=== PATIENT | female | born 1955 | race Caucasian/White ===

== ENCOUNTER 2020-06-09 14:01 | Emergency (ER) | payer MEDICARE, OTHER, SELFPAY ==
[2020-06-09 14:19] VITALS: BP 116/79; PULSE 113; RESP 18; TEMP 36.4; O2SAT 90; BMI 36.9
[2020-06-09 14:45] LABS: Basophils # 0.1 10^3/uL (0.0-0.1); Basophils % 0.7 %; Eosinophils # 0.3 10^3/uL (0.0-0.8); Eosinophils % 3.4 %; Lymphocytes % 20.3 %; Mean Corpuscular HGB Conc 31.3 g/dL (30.0-36.0); Mean Corpuscular Hemoglobin 29.1 pg (28.0-34.0); Mean Platelet Volume 11.1 fL (7.4-10.4); Monocytes # 1.1 10^3/uL (0.2-0.9); Monocytes % 11.3 %; Neutrophils # 6.43 10^3/uL (1.8-7.7); Nucleated Red Blood Cells % 0 %; Platelet Count 234 10^3/cmm (130-400); Red Blood Count 5.16 10^6/uL (4.1-5.3); Red Cell Distribution Width 13.1 % (12.1-15.1)
[2020-06-09 15:05] LABS: Alanine Aminotransferase 20 U/L (0-33); Albumin Level 4.2 g/dL (3.5-5.2); Alkaline Phosphatase 76 IU/L (35-105); Anion Gap 12.3 (5-19); Aspartate Amino Transferase 17 U/L (0-32); Blood Urea Nitrogen 11 mg/dL (8-23); Calcium 9.1 mg/dL (8.5-10.5); Carbon Dioxide 31 mmol/L (22-29); Chloride 102 mmol/L (98-107); Globulin 2.4 g/dL (1.3-4.6); Glomerular Filtration Rate 62.6 mL/min (90-130); Glucose 109 mg/dL (65-115); Lipase 18 U/L (13-60); Osmolality Calculated 289 mOsm/kg (285-295); Potassium 4.3 mmol/L (3.5-5.1); Sodium 141 mmol/L (136-145); Total Bilirubin 0.4 mg/dL (0.15-1.2); Total Protein 6.6 g/dL (6.6-8.7)
--- NOTE | 2020-06-09 17:20 | W.ED.ABDPA2 ---
HPI - Abdominal Pain General: Chief Complaint: Abdominal Pain Stated Complaint: ABD PAIN Time Seen by Provider: 06/09/20 17:20 History of Present Illness: HPI narrative: Patient is a 65-year-old female who comes to the ED with abdominal pain, nausea vomiting. Patient has had an appendectomy previously. She has a past medical history of cancer of the appendix approximately 15 years ago. 2 years after she was diagnosed a PET scan was performed and she was clear. She has not had any complications or cancer findings since. Pain started at 2:00 this morning and woke her. Says the pain is on the right lower quadrant. Patient is not moving and lying still she says pain is minimal. Patient says her pain gets worse every time she tries to move around. She had an episode of emesis yesterday which she says looked yellow was probably bile. She feels nauseous currently. Denies any bladder or bowel symptoms. Associated Symptoms: Reports nausea and vomiting; Denies chills, constipation, diarrhea, dysuria, fever(s), hematochezia and hematuria Review of Systems Const: Denies: fever(s), chills or fatigue Eyes: Denies: change in vision or eye discomfort ENMT: Denies: throat pain, odynophagia, nasal discharge or nasal congestion Card: Denies: chest pain, palpitations, edema, swelling of feet/ankles, dyspnea on exertion or orthopnea Resp: Denies: dyspnea, productive cough or non-productive cough GI: Reports: abdominal pain, nausea and vomiting; Denies: diarrhea, constipation or hematochezia : Denies: flank pain, dysuria or hematuria Musc: Denies: neck pain, back pain or extremity swelling Skin/Breast: Denies: rash or new lesions Neuro: Denies: headache(s), numbness in extremities or weakness in extremities PFSH ED PFSH: Medical History Anxiety Patient has history of anxiety that is currently well controlled with medication Cancer of appendix Chronic knee pain Hyperlipemia Patient continues to take Statin Medication without adverse reaction. Hypothyroid Patient has remained well controlled with Levothyroxine. Insomnia Patient has history of insomnia and takes Trazadone that she reports is helping. Social History Smoking and tobacco status: never smoked Second hand smoke exposure: No Smoking risk assessment/counseling performed?: No Alcohol intake: never Desire information about alcohol rehabilitation?: No Counseling given: No Desire information about substance/drug rehabilitation?: No Counseling given: No Physical Exam Const: COMMON NORMALS: no acute distress, patient oriented x3, healthy appearing and alert GENERAL APPEARANCE: cooperative and comfortable HENMT: COMMON NORMALS: normocephalic HEAD & SCALP: normocephalic MOUTH: Normal oral and palatal mucosa present THROAT: posterior oropharynx normal and uvula midline Eye: COMMON NORMALS: Equal, round and reactive pupils present PUPIL: Yes Equal, round and reactive pupils present Neck/C-Spine: COMMON NORMALS: supple GENERAL: Yes normal visual inspection Resp: COMMON NORMALS: normal respiratory effort, No retractions, No use of accessory muscles and clear to auscultation bilaterally AUSCULTATION: clear to auscultation bilaterally Cardio: COMMON NORMALS: regular rate, regular rhythm, S1 normal heart sound present, S2 normal heart sound present, No gallops present (Cardio), No clicks present (Cardio), No murmurs present (Cardio) and Peripheral pulses 2+ throughout RATE: regular rate RHYTHM: regular rhythm HEART SOUNDS: S1 normal heart sound present and S2 normal heart sound present PERIPHERAL PULSES: Peripheral pulses 2+ throughout GI: COMMON NORMALS: Normal to inspection, nondistended, normoactive bowel sounds present, Soft to palpation and no masses PALPATION: Yes Soft to palpation and Yes Tenderness to palpation present (GI) Details: RLQ (moderate tenderness with positive Rovsing's sing) : COMMON NORMALS: Yes no CVA tenderness BLADDER/KIDNEY EXAM: Yes no CVA tenderness Back/Pelvis: COMMON NORMALS: no CVA tenderness Extremity: COMMON NORMALS: normal to inspection and no pedal edema Neuro: COMMON NORMALS: patient oriented x3 SENSORIUM/ORIENTATION: Yes alert GAIT: Yes Normal gait present Skin: COMMON NORMALS: no rashes or lesions noted GENERAL SKIN EXAM: no rashes or lesions noted and dry skin Course Reevaluation(s): Reevaluation #1: After IV fluids, morphine and Zofran patient symptoms greatly improved. Consultations: Consultation #1: I spoke with DR. Kaiser about pt case and CT findings. He would like to see patient in clinic in the next couple days. I placed a referral with case management for patient to see Dr. Kaiser. Time: 19:45 Vital Signs: Vital signs: Vital Signs Temperature 97.5 F L 06/09/20 14:19 Pulse Rate 99 06/09/20 19:15 Respiratory Rate 18 06/09/20 19:15 Blood Pressure 118/68 06/09/20 19:15 Pulse Oximetry 92 06/09/20 19:15 MDM - Abdominal Pain MDM Narrative: Medical decision making narrative: Patient is a 65-year-old female comes to the ED with right lower quadrant abdominal pain, nausea vomiting. Patient states she has a past medical history of cancer of the appendix. Physical exam showed some right lower quadrant abdominal tenderness. White blood cells 10, rest of CBC and CMP and lipase were unremarkable. CT of the abdomen showed a mass at the cecum (likely coming from appendix) with surrounding enlarged lymph nodes. Report suggested likely neoplasm. Patient has no bowel obstruction and states she has had no problem having normal bowel movements recently. Patient was given IV fluids, Zofran and some morphine while here in the ED. Her symptoms greatly improved I contacted Dr. Kaiser and told him patient case and CT findings. He stated that he would like to see patient in his clinic in the next couple days. I placed an order with case management for patient to be referred to Dr. Kaiser. Patient was diagnosed neoplasm of appendix and I discussed CT finding with her. I told her that case management will be contacting her next couple days to set up an appointment with Dr. Kaiser. She was sent home with some Zofran and written prescription for Burton as needed for pain. Return to ED precautions given to patient. Patient understood and agreed with plan. Lab Data: Attestation: I reviewed the patient's lab results. Labs: Lab Results 06/09/20 06/09/20 Range/Units 14:40 14:40 WBC 10.0 (4.0-10.0) 10^3/ uL RBC 5.16 (4.1-5.3) 10^6/u L Hgb 15.0 (11.5-15.3) g/dL Hct 48.0 H (37.0-47.0) % MCV 93.0 (81-99) fL MCH 29.1 (28.0-34.0) pg MCHC 31.3 (30.0-36.0) g/dL RDW 13.1 (12.1-15.1) % Plt Count 234 (130-400) 10^3/c mm MPV 11.1 H (7.4-10.4) fL Neut % (Auto) 64.0 % Lymph % (Auto) 20.3 % Christian % (Auto) 11.3 % Eos % (Auto) 3.4 % Baso % (Auto) 0.7 % Neut # (Auto) 6.43 (1.8-7.7) 10^3/u L Lymph # (Auto) 2.0 (0.8-4.8) 10^3/u L Christian # (Auto) 1.1 H (0.2-0.9) 10^3/u L Eos # (Auto) 0.3 (0.0-0.8) 10^3/u L Baso # (Auto) 0.1 (0.0-0.1) 10^3/u L Nucleated RBC % (a uto) 0 % Nucleated RBCs # 0.0 /100WBC Sodium 141 (136-145) mmol/L Potassium 4.3 (3.5-5.1) mmol/L Chloride 102 (98-107) mmol/L Carbon Dioxide 31 H (22-29) mmol/L Anion Gap 12.3 (5-19) BUN 11 (8-23) mg/dL Creatinine 0.9 (0.5-0.9) mg/dL GFR Calculation 62.6 L (90-130) mL/min Glucose 109 (65-115) mg/dL Calculated Osmolal ity 289 (285-295) mOsm/k g Calcium 9.1 (8.5-10.5) mg/dL Total Bilirubin 0.4 (0.15-1.2) mg/dL AST 17 (0-32) U/L ALT 20 (0-33) U/L Alkaline Phosphata se 76 (35-105) IU/L Total Protein 6.6 (6.6-8.7) g/dL Albumin 4.2 (3.5-5.2) g/dL Globulin 2.4 (1.3-4.6) g/dL Lipase 18 (13-60) U/L Imaging Data ^: CT Abd/Pel: Attestation: I personally reviewed and interpreted this imaging study as follows: Radiologist's impression: [facility] [address] [place] [address] CT Scan Report Signed Patient: Mona Arnett Unit #: [id number] : 1955 Age/Sex: 65 / F ADM Date: 06/09/20 Loc: ER Room/Bed: Attending Dr: Ordering Provider/Ordering MD: Pramod Craft Date of Service: 06/09/20 Procedure(s): CT abdomen pelvis w con* [id number] Accession Number(s): [id number] Report Number: [id number] PROCEDURE INFORMATION: Exam: CT Abdomen And Pelvis With Contrast Exam date and time: 06/09/2020 6:05 PM Age: 65 years old Clinical indication: Abdominal pain; Localized; Right lower quadrant (rlq); Prior surgery; Surgery date: 6+ months; Surgery type: Appy; Patient HX: C/O rlq pain w n/v/d; Additional info: Abdom pain with n/v TECHNIQUE: Imaging protocol: Computed tomography of the abdomen and pelvis with intravenous contrast. Radiation optimization: All CT scans at this facility use at least one of these dose optimization techniques: automated exposure control; mA and/or kV adjustment per patient size (includes targeted exams where dose is matched to clinical indication); or iterative reconstruction. Contrast material: OMNI 300; Contrast volume: 95 ml; Contrast route: INTRAVENOUS (IV); COMPARISON: No relevant prior studies available. RADIATION DOSE METRICS: Total DLP (mGy-cm): 1703.68 FINDINGS: Lungs: There is subpleural atelectasis of the dependent portions of the lungs. Mediastinal space: A small hiatal hernia is present. Liver: Unremarkable.No mass. Gallbladder and bile ducts: Normal. No calcified stones. No ductal dilation. Pancreas: Normal. No ductal dilation. Spleen: Normal. No splenomegaly. Adrenals: Normal. No mass. Kidneys and ureters: There is no evidence of hydronephrosis. There is no evidence of renal calcifications. There are multiple renal hypodensities that cannot be further characterized on the current examination. Stomach and bowel: There is an enhancing soft tissue mass involving the medial cecum and the adjacent terminal ileum. There is marked induration of the adjacent fat but the mass measures at least 3.3 x 4.5 cm in size image 53. There is mild wall thickening in the distal ileum proximal to the mass that may reflect mild edema or inflammatory changes. There is no evidence of intestinal perforation or obstruction. Appendix: The appendix is not definitely visualized. It is possible that the large mass in the right lower quadrant is arising from the appendix. Intraperitoneal space: There is a small amount of fluid in the pelvis. Retroperitoneal space: There is a small amount of fluid in the right colic gutter. Vasculature: Unremarkable.No abdominal aortic aneurysm. Lymph nodes: Scattered subcentimeter lymph nodes are noted in the mesentery right lower quadrant. There is an enhancing mass in the mesentery just superior to the mass measuring 6.9 x 3.6 x 4.1 cm in size concerning for conglomerate adenopathy image 49. Multiple subcentimeter lymph nodes are noted in the mesentery. Bladder: Unremarkable as visualized. Reproductive: Unremarkable as visualized. Bones/joints: Unremarkable. No acute fracture. Soft tissues: There is a fat-containing umbilical hernia. CT/CT abdomen pelvis w con* [id number] IMPRESSION: Large mass involving the cecum and the adjacent terminal ileum. Adjacent conglomerate mass or adenopathy is noted in the adjacent right mesentery. Numerous subcentimeter lymph nodes are noted in the right lower quadrant and in the mesentery. Findings are compatible with neoplasm either arising from the cecum or possibly the appendix since the appendix is not visualized. There are no findings of acute appendicitis. There is some mild wall thickening of the terminal ileum proximal to the mass that may reflect mild edema or inflammatory changes. Radiation Dose CTDIVOL = (mGy): DLP = 1703.68 (mGy-cm) Dictated By: Alysha Martinez Signed By: Alysha Martinez Signed Date/Time: 06/09/201905 DD/ 03 Discharge Plan Discharge Patient Disposition: Home Clinical Impression: Neoplasm of appendix Condition: Stable Prescriptions: New Zofran 4 mg tablet 4 mg PO Q8H Qty: 30 RF: 0 No Action bupropion HCl [Wellbutrin XL] 300 mg tablet extended release 24 hr 300 mg PO DAILY RF: 0 trazodone 150 mg tablet 150 mg PO DAILY RF: 0 fluoxetine [Prozac] 40 mg capsule 40 mg PO DAILY RF: 0 Synthroid 25 mcg Tablet 25 mcg PO DAILY RF: 0 Celebrex 200 mg capsule 200 mg PO DAILY RF: 0 Zocor 40 mg tablet 40 mg PO DAILY RF: 0 Discharge Orders: Discharge Order (Routine); Ordered 06/09/20 Ordered By: Pramod Craft Referrals: AXEL Mir, [facility] [Primary Care Provider] - Yamil Kaiser MD [Physician] - Discharge Diet: Advance as tolerated and Clear Liquid Discharge Activity: Increase activity as tolerated Activity Restrictions/Additional Instructions: Follow-up with medical provider as directed. Dr. Kaiser office should be contacting you in the next couple days to set up and appointment. Take medications as prescribed. Start with a clear liquid diet and advance diet as tolerated. Return to the ER or your medical provider if condition worsens. Please read and understand discharge instructions. If any questions, please ask. Discharge Date/Time: 06/09/20 20:27 Coding Level of Care Code ED Box Tender for Brandt Fwd Exam Comprehensive
--- NOTE | 2020-06-09 17:41 | CTR_ITS ---
PROCEDURE INFORMATION: Exam: CT Abdomen And Pelvis With Contrast Exam date and time: 06/09/2020 6:05 PM Age: 65 years old Clinical indication: Abdominal pain; Localized; Right lower quadrant (rlq); Prior surgery; Surgery date: 6+ months; Surgery type: Appy; Patient HX: C/O rlq pain w n/v/d; Additional info: Abdom pain with n/v TECHNIQUE: Imaging protocol: Computed tomography of the abdomen and pelvis with intravenous contrast. Radiation optimization: All CT scans at this facility use at least one of these dose optimization techniques: automated exposure control; mA and/or kV adjustment per patient size (includes targeted exams where dose is matched to clinical indication); or iterative reconstruction. Contrast material: OMNI 300; Contrast volume: 95 ml; Contrast route: INTRAVENOUS (IV); COMPARISON: No relevant prior studies available. RADIATION DOSE METRICS: Total DLP (mGy-cm): 1703.68 FINDINGS: Lungs: There is subpleural atelectasis of the dependent portions of the lungs. Mediastinal space: A small hiatal hernia is present. Liver: Unremarkable.No mass. Gallbladder and bile ducts: Normal. No calcified stones. No ductal dilation. Pancreas: Normal. No ductal dilation. Spleen: Normal. No splenomegaly. Adrenals: Normal. No mass. Kidneys and ureters: There is no evidence of hydronephrosis. There is no evidence of renal calcifications. There are multiple renal hypodensities that cannot be further characterized on the current examination. Stomach and bowel: There is an enhancing soft tissue mass involving the medial cecum and the adjacent terminal ileum. There is marked induration of the adjacent fat but the mass measures at least 3.3 x 4.5 cm in size image 53. There is mild wall thickening in the distal ileum proximal to the mass that may reflect mild edema or inflammatory changes. There is no evidence of intestinal perforation or obstruction. Appendix: The appendix is not definitely visualized. It is possible that the large mass in the right lower quadrant is arising from the appendix. Intraperitoneal space: There is a small amount of fluid in the pelvis. Retroperitoneal space: There is a small amount of fluid in the right colic gutter. Vasculature: Unremarkable.No abdominal aortic aneurysm. Lymph nodes: Scattered subcentimeter lymph nodes are noted in the mesentery right lower quadrant. There is an enhancing mass in the mesentery just superior to the mass measuring 6.9 x 3.6 x 4.1 cm in size concerning for conglomerate adenopathy image 49. Multiple subcentimeter lymph nodes are noted in the mesentery. Bladder: Unremarkable as visualized. Reproductive: Unremarkable as visualized. Bones/joints: Unremarkable. No acute fracture. Soft tissues: There is a fat-containing umbilical hernia. CT/CT abdomen pelvis w con* [id number] IMPRESSION: Large mass involving the cecum and the adjacent terminal ileum. Adjacent conglomerate mass or adenopathy is noted in the adjacent right mesentery. Numerous subcentimeter lymph nodes are noted in the right lower quadrant and in the mesentery. Findings are compatible with neoplasm either arising from the cecum or possibly the appendix since the appendix is not visualized. There are no findings of acute appendicitis. There is some mild wall thickening of the terminal ileum proximal to the mass that may reflect mild edema or inflammatory changes. Radiation Dose CTDIVOL = (mGy): DLP = 1703.68 (mGy-cm)
[2020-06-09] MEDS: sodium chloride 0.9% 1,000 ML 999 ML IV (18:08)
[2020-06-09] MEDS: ondansetron 2 mg/ML SDV 2 mL 4 MG IVP (18:09)
[2020-06-09 18:11] VITALS: RESP 18
[2020-06-09] MEDS: morphine 4 mg/mL SDV 1 mL IVP (18:11)
[2020-06-09 18:15] VITALS: BP 104/73; PULSE 76; RESP 18; O2SAT 94
[2020-06-09] MEDS: iohexol 300 mg/mL 100 mL Btl IV (18:40)
[2020-06-09 19:15] VITALS: BP 118/68; PULSE 99; RESP 18; O2SAT 92
[2020-06-09] MEDS: HYDROcodone-acetaminophen 7.5-325 mg Tablet 1 TAB PO (20:32)
[2020-06-09] MEDS: ondansetron 4 MG Tablet PO (20:32)
--- NOTE | 2020-06-12 10:10 | DCPLANNER ---
it help desk manager had message to schedule a follow up appointment for patient with Dr. Kaiser. it help desk manager called [facility], spoke with Vanna, gave clinic patients information. it help desk manager was told that patients information would be printed and reviewed. Clinic will call patient with appointment information.
--- NOTE | 2020-06-15 08:02 | DCPLANNER ---
Addendum entered by Martita Maier 06/15/20 08:03: Appointment was with [facility] - patient did attend appt Original Note: Patient had an appointment scheduled for 06.12.20 with ortho - patient did attend appointment.
== END 2020-06-09 20:27 | disposition home or self-care (01) ==
PROVIDERS: Physician Assistant; Emergency Provider Physician Assistant; PCP Nurse Practitioner Family
DX: C18.1 Malignant neoplasm of appendix (principal); E78.5 Hyperlipidemia, unspecified
CPT/HCPCS: 12345; 36415; 74177; 80053; 83690; 85025; 96361; 96374; 96375; 99283; J2270; J2405; J7030; Q0162; Q9967

== ENCOUNTER 2020-06-15 09:48 | Outpatient (CLI) | payer MEDICARE, OTHER, SELFPAY ==
--- NOTE | 2020-06-15 10:02 | MM_ITS ---
WS: [id number] BILATERAL SCREENING DIGITAL MAMMOGRAM WITH CAD HISTORY: SCREENING COMPARISON: 05/18/2019 and 04/27/2018 Bilateral CC and MLO views submitted. Computer aided detection analyzed. Breast composition: There are scattered areas of fibroglandular density. No suspicious masses, microc alcifications or architectural distortion. MM/[place] [id number] IMPRESSION: BI-RADS: 1-Negative FOLLOW UP: 1 Year Follow-up
== END 2020-06-15 09:49 | disposition home or self-care (01) ==
LOC: RADSHAW 09:52
PROVIDERS: PCP Nurse Practitioner Family; Visit Provider Nurse Practitioner Family
DX: Z12.31 Encounter for screening mammogram for malignant neoplasm of breast (principal); K63.89 Other specified diseases of intestine
CPT/HCPCS: 77067; 87635

== ENCOUNTER 2020-06-19 07:58 | Day surgery (SDC) | payer MEDICARE, OTHER, SELFPAY ==
[2020-06-15 18:10] VITALS: BMI 36.9
[2020-06-19 08:15] VITALS: BP 139/80; PULSE 66; RESP 18; TEMP 36.5; O2SAT 97
[2020-06-19 08:16] VITALS: BMI 36.9
--- NOTE | 2020-06-19 08:27 | W.PM.OPSUD ---
Surgery/Procedure H&P Update DATE OF PROCEDURE: June 19, 2020 DATE H&P PERFORMED: 06/12/20 H&P UPDATE INFORMATION: I have reviewed H&P completed within last 30 days, I have examined patient prior to procedure and No changes to prior documentation PREOP DIAGNOSIS: Cecal mass PLANNED PROCEDURE: Operation Date: 06/19/20 09:00 Proposed Procedures p Colonoscopy 58905 K63.89(Not Applicable) - Yamil Kaiser MD
--- NOTE | 2020-06-19 08:43 | ANES.PREANE2 ---
Pre-Anesthetic Assessment Pre-Anesthetic Assessment: Height/Weight: Height 1.75 m Weight 113.398 kg Preop Diagnosis: Cecal mass Proposed Procedure: Operation Date: 06/19/20 09:00 Proposed Procedures p Colonoscopy 27433 K63.89(Not Applicable) - Yamil Kaiser MD Familial anesthetic complications: NOne Was Beta Blaire taken within 24 hours: N/A Last intake: Intake Last Liquid Date 06/18/20 Last Liquid Time 20:00 Last Solid Date 06/18/20 Last Solid Time 11:00 Social: Social History: No alcohol and No tobacco Exam: Pre-Anes Outpt Exam: alert, oriented x 3, clear to auscultation bilaterally and regular rate & rhythm Airway: Cervical ROM: WNL MP: 4 Dentition: Full GI: Comments: appendiceal mass Metabolic: Metabolic: Hyperlipidemia and Thyroid Neuropsych: Neuropsych: Depression Anesthetic Plan: ASA status: 2 Anesthesia: MAC Risk of > 500 ml blood loss (7ml/kg in children): No PFSH Anesthesia PFSH: Medical History (Updated 06/17/20 @ 00:00 by ) Anxiety Patient has history of anxiety that is currently well controlled with medication 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 Hypothyroid Patient has remained well controlled with Levothyroxine. Insomnia Patient has history of insomnia and takes Trazadone that she reports is helping. Surgical History S/P appendectomy Status post bilateral knee replacements Status post colonoscopy Social History Smoking and tobacco status: never smoked Second hand smoke exposure: No Smoking risk assessment/counseling performed?: No Alcohol intake: never Desire information about alcohol rehabilitation?: No Counseling given: No Desire information about substance/drug rehabilitation?: No Counseling given: No Data Anesthesia Cardiac Studies: No Data to Display
[2020-06-19 09:54] VITALS: BP 132/88; PULSE 76; RESP 16; TEMP 36.6; O2SAT 94
--- NOTE | 2020-06-19 09:59 | ANE.PACU2 ---
Inpatient post-anesthesia follow up: Airway intact: Yes Vital signs: Temperature Pulse Rate Respiratory Rate Blood Pressure Pulse Oximetry Oxygen Delivery Me thod Room Air Oxygen Flow Rate Fraction of Inspir ed Oxygen Hydration adequate: Yes Nausea and vomiting: No Pain level: 1 Mental status: Baseline
[2020-06-19 10:10] VITALS: BP 137/97; PULSE 66; RESP 18; O2SAT 97
[2020-06-19] MEDS: sodium chloride 0.9% 1,000 ML 30 ML IV (10:25)
== END 2020-06-19 10:25 | disposition home or self-care (01) ==
PROVIDERS: PCP Nurse Practitioner Family; Visit Provider Surgery
PROC: 0DJD8ZZ Inspection of Lower Intestinal Tract, Via Natural or Artificial Opening Endoscopic (ICD-10-PCS; CPT 45378; principal; 2020-06-19 09:00)
DX: D49.0 Neoplasm of unspecified behavior of digestive system (principal); E78.5 Hyperlipidemia, unspecified; E03.9 Hypothyroidism, unspecified
CPT/HCPCS: 12345; 45380; 88305; J2704; J7030

== ENCOUNTER 2023-07-21 01:26 | Observation (INO) | payer MEDICARE, OTHER, SELFPAY ==
[2023-07-21] VITALS (12 sets, daily range): BP systolic 128–184; BP diastolic 67–118; PULSE 71–93; RESP 13–22; TEMP 36.4–36.9; O2SAT 90–95; BMI 30.9
--- NOTE | 2023-07-21 01:35 | CTR_ITS ---
PROCEDURE INFORMATION: Exam: CT Head Without Contrast Exam date and time: 07/21/2023 1:45 AM Age: 68 years old Clinical indication: Pain; Headache; Additional info: DELEON TECHNIQUE: Imaging protocol: Computed tomography of the head without contrast. Radiation optimization: All CT scans at this facility use at least one of these dose optimization techniques: automated exposure control; mA and/or kV adjustment per patient size (includes targeted exams where dose is matched to clinical indication); or iterative reconstruction. REPORTING DATA: Count of CT and Cardiac NM exams in prior 12 months: This patient has received 0 known CTs and 0 known cardiac nuclear medicine studies in the 12 months prior to the current study. COMPARISON: No relevant prior studies available. RADIATION DOSE METRICS: Total DLP (mGy-cm): 1100.18 FINDINGS: Brain: The right periventricular white matter shows a small area of higher density on series 4, image 22 measuring up to about 5 mm. There is moderate atrophy and mild chronic bicerebral white matter ischemic change. The left external capsule shows a hypodensity measuring about 18 x 10 mm. Cerebral ventricles: No ventriculomegaly or evidence of acute hydrocephalus. Paranasal sinuses: The partially assessed sinuses are grossly clear. Mastoid air cells: Visualized mastoid air cells are well aerated. Bones/joints: The C1 posterior arch shows congenital nonunion. Soft tissues: Unremarkable. Vasculature: Advanced diffuse vascular calcification noted. CT/CT head wo con* [id number] IMPRESSION: 1. Small right periventricular probable calcification or cavernoma versus blood products. 2. Acute or subacute CVA in the left external capsule measures 1.8 x 1.0 cm. 3. To work up both these findings, an MRI may be helpful. 4. [id number] age-related change.
--- NOTE | 2023-07-21 01:36 | W.ED.GENADLT ---
HPI - General Adult General: Chief complaint: Headache Stated complaint: headache Time Seen by Provider: 07/21/23 01:28 Source: patient and EMS Mode of arrival: EMS Limitations: no limitations History of Present Illness: 68-year-old female with a history of colon cancer. States she has been under a lot of stress she is scheduled to start chemo this week states today she has had a headache. States is a pressure type headache began gradually is currently a 7 out of 10. She denies any worsening proving factors. States she has had a history of tension headaches and this feels similar. Has had some nausea received Zofran in route and the nausea is improved. She states she has had some difficulty speaking with her headaches as well which can be typical for her Associated symptoms: Reports headache(s); Deny chest pain, dyspnea, nausea, rash or vomiting Review of Systems Const: Denies: fever(s) or chills Eyes: Denies: blurry vision or eye discomfort ENMT: Denies: throat pain or dental pain Card: Denies: chest pain Resp: Denies: dyspnea GI: Denies: abdominal pain, nausea, vomiting or diarrhea : Denies: dysuria Musc: Denies: neck pain or back pain Skin/Breast: Denies: rash Neuro: Reports: headache(s) PFSH ED PFSH: Medical History Anxiety Patient has history of anxiety that is currently well controlled with medication 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 Hypothyroid Patient has remained well controlled with Levothyroxine. Insomnia Patient has history of insomnia and takes Trazadone that she reports is helping. Surgical History S/P appendectomy Status post bilateral knee replacements Status post colonoscopy (06/19/20) cecal mass Social History Smoking and tobacco/nicotine status: former use of tobacco/nicotine Quit status (tobacco/nicotine): has quit using Year quit tobacco: 2016 Former quit date comment: Smoked for 40 years Second hand smoke exposure: No Alcohol intake: never Substance/Drug Use: never Physical Exam Const: COMMON NORMALS: no acute distress, patient oriented x3 and healthy appearing HENMT: COMMON NORMALS: normocephalic and atraumatic HEAD & SCALP: normocephalic and atraumatic Eye: COMMON NORMALS: Equal, round and reactive pupils present and EOMs intact bilaterally PUPIL: Yes Equal, round and reactive pupils present Neck/C-Spine: COMMON NORMALS: full ROM and supple Chest: COMMONS NORMALS: normal inspection of the chest Resp: COMMON NORMALS: normal respiratory effort Cardio: COMMON NORMALS: regular rate, regular rhythm and No murmurs present (Cardio) RATE: regular rate RHYTHM: regular rhythm Extremity: COMMON NORMALS: normal to inspection and full ROM Neuro: COMMON NORMALS: patient oriented x3, moves all extremities and no focal motor deficits Psych: COMMON NORMALS: mental status grossly normal, Normal thought process present and cooperative THOUGHT PROCESS: Normal thought process present Skin: COMMON NORMALS: no rashes or lesions noted and no wounds GENERAL SKIN EXAM: no rashes or lesions noted Course Vital Signs: Vital signs: Vital Signs Temperature 98.5 F 07/21/23 01:27 Pulse Rate 74 07/21/23 04:34 Respiratory Rate 16 07/21/23 04:34 Blood Pressure 169/94 07/21/23 04:34 Pulse Oximetry 94 07/21/23 04:34 Oxygen Delivery Me thod Nasal Cannula 07/21/23 02:57 Oxygen Flow Rate 1.5 07/21/23 02:57 [facility] - General Adult Medical Decision Making Patient presents here with a headache she had some slurred speech at times as well. She has no focal neurodeficits here CT head was concerning for acute or subacute CVA her symptoms started this morning her NIH here is currently 0 CTA is normal she has no signs of bleeding I spoke to hospitalist will admit at this time for observation for MRI of her head Medical Records I reviewed the patient's medical records. Lab Data I reviewed the patient's lab results. 07/21/23 03:37 07/21/23 03:[address] 07/21/23 01:35 IMPRESSION: 1. Small right periventricular probable calcification or cavernoma versus blood products. 2. Acute or subacute CVA in the left external capsule measures 1.8 x 1.0 cm. 3. To work up both these findings, an MRI may be helpful. 4. [id number] age-related change. ADDENDUM: 07/21/23 0328 THIS REPORT CONTAINS FINDINGS THAT MAY BE CRITICAL TO PATIENT CARE. The findings were verbally communicated via telephone conference at 3:26 AM CDT on 07/21/2023 with EMMANUEL MCDONALD. The findings were acknowledged and understood. Head/Neck CTA 07/21/23 03:23 IMPRESSION: No large vessel stenosis or occlusion. IMPRESSION: No stenosis or occlusion. REFERENCES: NASCET CRITERIA. The degree of stenosis in the cervical segment of the internal carotid artery is based on NASCET criteria. Normal is no stenosis. Mild is less than 50% stenosis. Moderate is 50-69% stenosis. Severe is 70% to 99% stenosis. Total occlusion is no detectable patent lumen. Laboratory Results WBC 8.83 10^3/uL (3.29-11.43) 07/21/23 03:37 RBC 5.17 10^6/uL (3.85-5.65) 07/21/23 03:37 Hgb 16.40 g/dL (11.27-16.99) 07/21/23 03:37 Hct 51.1 % (36-47) H 07/21/23 03:37 MCV 98.8 fl (85-98) H 07/21/23 03:37 MCH 31.7 pg (27-33) 07/21/23 03:37 MCHC 32.1 g/dL (30-55) 07/21/23 03:37 RDW 15.4 % (12.1-15.1) H 07/21/23 03:37 Plt Count 176 10^3/cmm (157-399) 07/21/23 03:37 MPV 10.8 fL (7.4-10.4) H 07/21/23 03:37 Neut % (Auto) 75.1 % 07/21/23 03:37 Lymph % (Auto) 13.3 % 07/21/23 03:37 [place] % (Auto) 9.4 % 07/21/23 03:37 Eos % (Auto) 1.1 % 07/21/23 03:37 Baso % (Auto) 0.6 % 07/21/23 03:37 Neut # (Auto) 6.64 10^3/uL (1.8-7.7) 07/21/23 03:37 Lymph # (Auto) 1.2 10^3/uL (0.8-4.8) 07/21/23 03:37 [place] # (Auto) 0.8 10^3/uL (0.2-0.9) 07/21/23 03:37 Eos # (Auto) 0.1 10^3/uL (0.0-0.8) 07/21/23 03:37 Baso # (Auto) 0.1 10^3/uL (0.0-0.1) 07/21/23 03:37 Nucleated RBC % (auto) 0 % 07/21/23 03:37 Nucleated RBCs # 0.0 /100WBC 07/21/23 03:37 Sodium 140 mmol/L (136-145) 07/21/23 03:37 Potassium 4.8 mmol/L (3.5-5.1) 07/21/23 03:37 Chloride 102 mmol/L (98-107) 07/21/23 03:37 Carbon Dioxide 29 mmol/L (22-29) 07/21/23 03:37 Anion Gap 13.8 (5-19) 07/21/23 03:37 BUN 12 mg/dL (8-23) 07/21/23 03:37 Creatinine 0.9 mg/dL (0.5-0.9) 07/21/23 03:37 GFR Calculation 62.1 mL/min (90-130) L 07/21/23 03:37 Glucose 145 mg/dL (65-115) H 07/21/23 03:37 Calculated Osmolality 292 mOsm/kg (285-295) 07/21/23 03:37 Calcium 9.5 mg/dL (8.5-10.5) 07/21/23 03:37 All radiology interpretation(s) finalized by discharge Discharge Plan Discharge Patient Disposition: Placed in Observation Clinical Impression: Headache, Slurred speech Condition: Stable Prescriptions: No Action loperamide [Imodium A-D] 2 mg capsule 2 mg PO Q6H PRN diphenoxylate-atropine 2.5-0.025 mg/5 mL liquid 10 ml PO BID PRN trazodone 150 mg tablet See Rx Instructions .ROUTE .COMPLEX Qty: 90 3RF Dose Instruction: TAKE 1 TABLET BY MOUTH DAILY Rx Instructions: TAKE 1 TABLET BY MOUTH DAILY levocetirizine [Xyzal] 5 mg tablet 5 mg PO DAILY Qty: 90 1RF Xarelto 20 mg tablet 20 mg PO DAILY Qty: 90 0RF fluoxetine 40 mg capsule See Rx Instructions .ROUTE .COMPLEX Qty: 90 3RF Dose Instruction: TAKE 1 CAPSULE BY MOUTH DAILY Rx Instructions: TAKE 1 CAPSULE BY MOUTH DAILY bupropion HCl 300 mg tablet extended release 24 hr See Rx Instructions .ROUTE .COMPLEX Qty: 90 3RF Dose Instruction: TAKE 1 TABLET BY MOUTH DAILY Rx Instructions: TAKE 1 TABLET BY MOUTH DAILY levothyroxine 25 mcg tablet See Rx Instructions .ROUTE .COMPLEX Qty: 90 3RF Dose Instruction: TAKE 1 TABLET BY MOUTH DAILY Rx Instructions: TAKE 1 TABLET BY MOUTH DAILY Referrals: Maru Henson FNP [Primary Care Provider] - Coding Level of Care Code ED Flamer After Lasting for Brandt Segal
[2023-07-21] MEDS: morphine 4 mg/mL SDV 1 mL IVP (01:53)
[2023-07-21] MEDS: metoclopramide 5 mg/mL SDV 2 mL IVP (02:05)
[2023-07-21] MEDS: diphenhydrAMINE 50 mg/mL SDV 1mL 25 MG IVP (02:05)
--- NOTE | 2023-07-21 03:23 | CTR_ITS ---
PROCEDURE INFORMATION: Exam: CTA Head With Contrast, Arteriography Exam date and time: 07/21/2023 4:06 AM Age: 68 years old Clinical indication: Headache; Additional info: DELEON TECHNIQUE: Imaging protocol: Computed tomographic angiography of the head with contrast. Exam focused on the arteries. 3D rendering (Not supervised by radiologist): MIP and/or 3D reconstructed images were created by the technologist. Radiation optimization: All CT scans at this facility use at least one of these dose optimization techniques: automated exposure control; mA and/or kV adjustment per patient size (includes targeted exams where dose is matched to clinical indication); or iterative reconstruction. Contrast material: OMNI 350; Contrast volume: 100 ml; Contrast route: INTRAVENOUS (IV); REPORTING DATA: Count of CT and Cardiac NM exams in prior 12 months: This patient has received 0 known CTs and 0 known cardiac nuclear medicine studies in the 12 months prior to the current study. COMPARISON: CT head wo con* [id number] 07/21/2023 1:45 AM RADIATION DOSE METRICS: Total DLP (mGy-cm): 542.47 FINDINGS: ANTERIOR CIRCULATION: Right internal carotid artery: Intracranial segment is patent with no significant stenosis. No aneurysm. Right middle cerebral artery: No occlusion or significant stenosis. No aneurysm. Right anterior cerebral artery: No occlusion or significant stenosis. No aneurysm. Hypoplastic. Left internal carotid artery: Intracranial segment is patent with no significant stenosis. No aneurysm. Left middle cerebral artery: No occlusion or significant stenosis. No aneurysm. Left anterior cerebral artery: No occlusion or significant stenosis. No aneurysm. POSTERIOR CIRCULATION: Right vertebral artery: No occlusion or significant stenosis. No aneurysm. Left vertebral artery: No occlusion or significant stenosis. No aneurysm. Basilar artery: No occlusion or significant stenosis. No aneurysm. Right posterior cerebral artery: No occlusion or significant stenosis. No aneurysm. Left posterior cerebral artery: No occlusion or significant stenosis. No aneurysm. Brain: See same-day head CT for those findings. Cerebral ventricles: No evidence of ventriculomegaly or hydrocephalus. The ventricles seem age-appropriate. Bones/joints: Unremarkable. No acute fracture. Soft tissues: Unremarkable. Other findings: Advanced diffuse vascular calcification noted. PROCEDURE INFORMATION: Exam: CTA Neck With Contrast Exam date and time: 07/21/2023 4:06 AM Age: 68 years old Clinical indication: Headache; Additional info: DELEON TECHNIQUE: Imaging protocol: Computed tomographic angiography of the neck with contrast. 3D rendering (Not supervised by radiologist): MIP and/or 3D reconstructed images were created by the technologist. Radiation optimization: All CT scans at this facility use at least one of these dose optimization techniques: automated exposure control; mA and/or kV adjustment per patient size (includes targeted exams where dose is matched to clinical indication); or iterative reconstruction. Contrast material: OMNI 350; Contrast volume: 100 ml; Contrast route: INTRAVENOUS (IV); REPORTING DATA: Count of CT and Cardiac NM exams in prior 12 months: This patient has received 0 known CTs and 0 known cardiac nuclear medicine studies in the 12 months prior to the current study. COMPARISON: CT head wo con* [id number] 07/21/2023 1:45 AM RADIATION DOSE METRICS: Total DLP (mGy-cm): 542.47 FINDINGS: Right common carotid artery: No stenosis. No dissection or occlusion. Right internal carotid artery: No stenosis of the extracranial segment. No dissection or occlusion. Very tortuous. Right external carotid artery: No occlusion or high-grade stenosis identififed. Left common carotid artery: No stenosis. No dissection or occlusion. Left internal carotid artery: No stenosis of the extracranial segment. No dissection or occlusion. Left external carotid artery: No occlusion or high-grade stenosis identififed. Right vertebral artery: No stenosis. No dissection or occlusion. Left vertebral artery: No stenosis. No dissection or occlusion. Dominant. Soft tissues: No significant soft tissue swelling or other acute finding noted. Right-sided port. Bones/joints: No acute fracture. The C1 posterior arch shows congenital nonunion. Other findings: Advanced diffuse vascular calcification noted. CT/CT angio headneck* [id number] IMPRESSION: No large vessel stenosis or occlusion. IMPRESSION: No stenosis or occlusion. REFERENCES: NASCET CRITERIA. The degree of stenosis in the cervical segment of the internal carotid artery is based on NASCET criteria. Normal is no stenosis. Mild is less than 50% stenosis. Moderate is 50-69% stenosis. Severe is 70% to 99% stenosis. Total occlusion is no detectable patent lumen.
[2023-07-21 03:41] LABS: Basophils # 0.1 10^3/uL (0.0-0.1); Basophils % 0.6 %; Eosinophils # 0.1 10^3/uL (0.0-0.8); Eosinophils % 1.1 %; Hematocrit 51.1 % (36-47); Lymphocytes # 1.2 10^3/uL (0.8-4.8); Lymphocytes % 13.3 %; Mean Corpuscular HGB Conc 32.1 g/dL (30-55); Mean Corpuscular Hemoglobin 31.7 pg (27-33); Mean Corpuscular Volume 98.8 fl (85-98); Mean Platelet Volume 10.8 fL (7.4-10.4); Monocytes # 0.8 10^3/uL (0.2-0.9); Monocytes % 9.4 %; Neutrophils # 6.64 10^3/uL (1.8-7.7); Neutrophils % 75.1 %; Nucleated Red Blood Cells % 0 %; Platelet Count 176 10^3/cmm (157-399); Red Blood Count 5.17 10^6/uL (3.85-5.65); Red Cell Distribution Width 15.4 % (12.1-15.1); White Blood Count 8.83 10^3/uL (3.29-11.43)
[2023-07-21 03:59] LABS: Anion Gap 13.8 (5-19); Blood Urea Nitrogen 12 mg/dL (8-23); Calcium 9.5 mg/dL (8.5-10.5); Carbon Dioxide 29 mmol/L (22-29); Chloride 102 mmol/L (98-107); Glomerular Filtration Rate 62.1 mL/min (90-130); Glucose 145 mg/dL (65-115); Osmolality Calculated 292 mOsm/kg (285-295); Potassium 4.8 mmol/L (3.5-5.1); Sodium 140 mmol/L (136-145)
[2023-07-21] MEDS: iohexol 350 mg/mL 500 mL Btl (per mL) IV (04:29)
[2023-07-21] MEDS: aspirin 81 mg Chew Tablet 324 MG PO (04:56)
[2023-07-21] MEDS: hyDRALAzine 20 mg/mL INJ 1 mL 10 MG IVP (05:12)
--- NOTE | 2023-07-21 05:29 | P.HP_ITS ---
Providers/Chief Complaint Admitting Physician: Concetta Denise MD Primary Care Provider: Maru Henson APN Chief Complaint: headache History of Present Illness Mona Arnett is a 68 year old female with history of metastatic colon cancer hypothyroidism depression lower extremity DVT but not taking Xarelto for the last 2 weeks presented with complaint of severe headache 10 out of 10 throbbing sudden onset no aggravating or relieving factors associated with nausea and vomiting x2 last night. She denies any fever cold cough chest pain abdominal pain dizziness or urinary complaints. She reports having similar headache 1 to 2 years ago and was associated with difficulty finding words to speak. She denies any weakness in either of the extremities. Review of Systems Narrative: As per HPI Medications/Allergies Home Medications Medication Instructions Recorded Confirmed Last Taken Type trazodone 150 mg tablet See Rx Instructions .Route 03/18/21 07/16/23 Unknown Rx .COMPLEX #90 tabs levocetirizine 5 mg tablet (Xyzal) 5 mg PO DAILY #90 tabs 09/30/22 07/16/23 Unknown Rx rivaroxaban 20 mg tablet (Xarelto) 20 mg PO DAILY #90 tabs 10/13/22 07/16/23 Unknown Rx bupropion HCl 300 mg 24 hr tablet, See Rx Instructions .Route 11/26/22 07/16/23 Unknown Rx extended release .COMPLEX #90 tabs fluoxetine 40 mg capsule See Rx Instructions .Route 11/26/22 07/16/23 Unknown Rx .COMPLEX #90 caps levothyroxine 25 mcg tablet See Rx Instructions .Route 06/17/23 07/16/23 Unknown Rx .COMPLEX #90 tabs diphenoxylate-atropine 2.5 10 ml PO BID PRN 07/16/23 07/16/23 Unknown History mg-0.025 mg/5 mL oral liquid loperamide 2 mg capsule (Imodium 2 mg PO Q6H PRN 07/16/23 07/16/23 Unknown History A-D) Allergies Allergy/AdvReac Type Severity Reaction Status Date / Time No Known Allergies Allergy Verified 07/16/23 10:28 PFSH Acute PFSH: Medical History Anxiety Patient has history of anxiety that is currently well controlled with medication 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 Hypothyroid Patient has remained well controlled with Levothyroxine. Insomnia Patient has history of insomnia and takes Trazadone that she reports is helping. Surgical History S/P appendectomy Status post bilateral knee replacements Status post colonoscopy (06/19/20) cecal mass Social History Smoking and tobacco/nicotine status: former use of tobacco/nicotine Quit status (tobacco/nicotine): has quit using Year quit tobacco: 2016 Former quit date comment: Smoked for 40 years Second hand smoke exposure: No Alcohol intake: never Substance/Drug Use: never Vitals/I&O/Wt Last Vital Signs Temp 98.5 F 07/21/23 01:27 Pulse 74 07/21/23 04:34 Resp 16 07/21/23 04:34 BP 169/94 07/21/23 04:34 Pulse Ox 94 07/21/23 04:34 O2 Del Method Nasal Cannula 07/21/23 02:57 O2 Flow Rate 1.5 07/21/23 02:57 Weight last 48 hrs Weight 92.079 kg Physical Exam Narrative: She is alert awake oriented x3 cooperative pleasant but has difficulty finding words to speak Chest clear to auscultation bilaterally, Chemo-Port in place Cardiovascular normal heart sounds no murmurs Abdomen soft nontender nondistended normal bowel sounds Extremities no edema noted Neurological no aphasia, no focal deficits, cranial nerves intact. Data 07/21/23 03:37 07/21/23 03:[address]: Radiologist's impression: CTA neck with contrast IMPRESSION: No large vessel stenosis or occlusion. ? CT Head: Radiologist's impression: IMPRESSION: 1. ? Small right periventricular probable calcification or cavernoma versus blood products. 2. ? Acute or subacute CVA in the left external capsule measures 1.8 x 1.0 cm. A&P Assessment and plan (1) Headache: (2) Cerebrovascular accident: Plan 68 year old female with history of metastatic colon cancer hypothyroidism depression lower extremity DVT but not taking Xarelto for the last 2 weeks presented with complaint of severe headache 10 out of 10 throbbing sudden onset no aggravating or relieving factors associated with nausea and vomiting x2 last night, difficulty finding words to speak and CT head consistent with acute or subacute stroke. Will check MRI brain in a.m. P.o. aspirin 81 mg daily Neurology consult in a.m. Resume home medications IV Pepcid 20 mg twice a day for stress ulcer prophylaxis Intermittent compression devices for DVT prophylaxis Regular diet She is DNR/DNI as per discussion, comfort care only. Attestations Medical Necessity Statement*: She needs less than 2 midnights of continued hospitalization. She is here for severe headache and CT head consistent with new or subacute stroke, hence needs further work-up for stroke with MRI brain. Time Spent in Patient Care: 30 minutes Coding Level of Care Code Acute Code for [facility] Fwd Diagnoses Headache R51.9 Cerebrovascular accident I63.9 Time Spent (min) 30
--- NOTE | 2023-07-21 05:42 | MR_ITS ---
WS: [id number] MRI BRAIN WITHOUT CONTRAST HISTORY: Headache and slurred speech COMPARISON: None available. TECHNIQUE: Diffusion imaging, multiplanar T1, T2 and FLAIR imaging obtained. No evidence for acute infarct or hemorrhage. Morales-white matter differentiation is normal. Mild atrophy and moderate small vessel ischemic changes. No prior infarct. Susceptibility lesion orlin uring 9 mm near the RIGHT caudate head. This corresponds to the area of increased density on the [facility] nt CT. Variable signal intensity on the FLAIR and T2 sequences. Ventricles and extra-axial spaces are normal. No inferior displacement of cerebellar tonsils. The sella turcica and pituitary gland are unremarkabl e. Dural venous sinuses and [place] of [place] demonstrate no abnormality on this unenhanced studies. Paranasal sinuses: Very minimal mucoperiosteal thickening in the ethmoid air cells. No air-fluid leve ls Mastoid air cells: Small amount of fluid in the RIGHT mastoid air cells Calvarium and scalp: Intact. IMPRESSION: 1. No acute infarct. Diffusion imaging is normal. 2. Mild cerebral atrophy with moderate small vessel ischemic changes. No acute hemorrhage. 3. 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 Corresponds to the finding on the rece nt CT.
--- NOTE | 2023-07-21 05:47 | PC.NURSE ---
Dr. Denise at bedside. Patient oriented x4 and speech is clear, but when asking admission questions, patient having difficulty with memory and difficulty finding words. Patient c/o headache. Patient states her last chemo treatment was 2 weeks ago. Patient states she stopped taking her blood thinner 2 weeks ago due to not being able to afford it. Patient does not have a list of her home medications and and does not know the names or doses of them. Unable to complete med rec at this time.
[2023-07-21] MEDS: sodium chloride 0.9% 1,000 ML 75 ML IV ×2 (09:45→22:00)
[2023-07-21] MEDS: levothyroxine 25 mcg Tablet PO (09:48)
[2023-07-21] MEDS: fluoxetine 20 mg Capsule 40 MG PO (09:48)
[2023-07-21] MEDS: buPROPion XL (24 HR) 300 mg Tablet PO (09:48)
--- NOTE | 2023-07-21 10:50 | MR_ITS ---
WS: [id number] MR VENOGRAPHY HEAD 3-D noncontrast imaging performed through the cerebral veins. All imaging is reviewed. HISTORY: headache COMPARISON: None available. Excellent demonstration of the dural venous sinuses and cerebral veins. There are no filling defects to suggest acute or chronic thrombus. Flow artifact in the jugular veins. Superior sagittal sinus, straight sinus and transverse sinuses ar e all patent with no significant thrombus. IMPRESSION: Normal MR venogram cerebral veins.
--- NOTE | 2023-07-21 10:59 | PM.MISC ---
Miscellaneous Note Note: Quested MRI MRV Added Xarelto Tylenol We will do PT and OT today Plan to discharge her tomorrow Still complaining of headache Nonfocal neuro exam NIH 0
[2023-07-21] MEDS: ondansetron 2 mg/ML SDV 2 mL 4 MG IVP (11:26)
[2023-07-21] MEDS: acetaminophen 500 mg Tablet PO ×2 (11:26→20:38)
--- NOTE | 2023-07-21 19:38 | PC.NURSE ---
Patient states she has had diarrhea for years. Patient states they took half my intestine so I will never be normal again. Patient asking for PRN Imodium that she takes at home. Dr. Denise notified and order received for home dose of Imodium.
[2023-07-21] MEDS: loperamide 2 mg Capsule PO (20:39)
[2023-07-22 04:00] VITALS: BP 155/99; PULSE 77; RESP 13; TEMP 36.8; O2SAT 92
[2023-07-22 05:15] LABS: Basophils # 0.1 10^3/uL (0.0-0.1); Basophils % 0.7 %; Eosinophils # 0.3 10^3/uL (0.0-0.8); Eosinophils % 3.8 %; Hematocrit 44.6 % (36-47); Lymphocytes # 1.7 10^3/uL (0.8-4.8); Lymphocytes % 19.9 %; Mean Corpuscular HGB Conc 31.2 g/dL (30-55); Mean Corpuscular Volume 99.3 fl (85-98); Mean Platelet Volume 11.1 fL (7.4-10.4); Monocytes # 1.3 10^3/uL (0.2-0.9); Monocytes % 14.8 %; Neutrophils # 5.09 10^3/uL (1.8-7.7); Neutrophils % 60.4 %; Nucleated Red Blood Cells % 0 %; Platelet Count 162 10^3/cmm (157-399); Red Blood Count 4.49 10^6/uL (3.85-5.65); Red Cell Distribution Width 15.4 % (12.1-15.1); White Blood Count 8.43 10^3/uL (3.29-11.43)
[2023-07-22 05:32] LABS: Alanine Aminotransferase 18 U/L (0-33); Albumin Level 3.7 g/dL (3.5-5.2); Alkaline Phosphatase 74 U/L (35-105); Anion Gap 13.3 (5-19); Aspartate Amino Transferase 18 U/L (0-32); Blood Urea Nitrogen 13 mg/dL (8-23); Calcium 8.8 mg/dL (8.5-10.5); Carbon Dioxide 27 mmol/L (22-29); Chloride 104 mmol/L (98-107); Globulin 1.9 g/dL (1.3-4.6); Glomerular Filtration Rate 71.1 mL/min (90-130); Glucose 127 mg/dL (65-115); Magnesium 2.2 mg/dL (1.7-2.3); Osmolality Calculated 292 mOsm/kg (285-295); Phosphorus 4.1 mg/dL (2.5-4.5); Potassium 4.3 mmol/L (3.5-5.1); Sodium 140 mmol/L (136-145); Total Bilirubin 0.5 mg/dL (0.15-1.2); Total Protein 5.6 g/dL (6.6-8.7)
[2023-07-22 07:37] VITALS: BP 148/92; PULSE 77; RESP 18; TEMP 36.9; O2SAT 95
[2023-07-22] MEDS: acetaminophen 500 mg Tablet PO (07:40)
--- NOTE | 2023-07-22 10:08 | PC.CHAP ---
Pastoral Care Encounter/Spiritual Assessment Type of Contact [] Declined ocularist visit [] Patient/Family/Request visit [] Outpatient visit [] Follow-up visit [] Physician referral [] Code/Alert [x] Routine visit [] Staff referral [] Actively dying [] Patient sleeping [] Family support [] [] Out of room [] Palliative care [] [] Receiving care in room [] Pre-surgical visit [] Trauma [] Long length of stay [] ICU visit [] Other: Relational/Emotional Strength [] Patient feels connected with others/family/visitors/staff [] Distress [] Loneliness/isolation [] Abandonment Spirituality of Patient [] Person of Venita [] Attends Tenriism of their Venita [x] Believes in Prayer [] Reads Bible or Latter Day materials [] There are Spiritual issues to be addressed Interface Control Officer Interventions [x] Prayer [x] Active listening [] Non-anxious presence [] Spiritual/emotional support [] Crisis/trauma care [] Spiritual counseling [] Bereavement support [] Provided bereavement packet [] Provided Bible/devotional materials [] Provided toy/stuffed animal, coloring book to patient or family member [] Provided Communion [] Anointing/[place] [] Salvation [] Completed spiritual assessment [] Other: Impact on Illness or Injury [] Angry [] Fearful [] Anxious [] Often cries [] Exhaustion [] Unable to work [] Unable to attend [employer]beterian [] Unable to walk/stand [] Unable to read [] Unable to drive [] Unable to eat/drink [] Unable to sleep [] Unable to be with family [] Patient intubated [] Other: Summary Time spent with patient 15 min
--- NOTE | 2023-07-22 10:47 | PM.DCS ---
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 Mo myself. Considering small AVM/microvascular changes, and chronic use of Xarelto I would like her to follow-up with a neurologist Physical Exam Narrative: Awake and alert GCS 15 NIH 0 Pleasant and cooperative S1, S2 Discharge Data Studies Completed and Pending Completed Studies During Hospitalization Category Date Time Status CT head wo con* [id number] Stat Cat Scan 07/21/23 01:35 Completed CTA head neck [CT angio headneck* [id number]] Stat Cat Scan 07/21/23 03:23 Completed MR head wo con* [id number] Routine MRI 07/21/23 05:42 Completed MRV [[place] [id number]] Routine MRI 07/21/23 10:50 Completed Radiology Impressions Head CT 07/21/23 01:35 IMPRESSION: 1. Small right periventricular probable calcification or cavernoma versus blood products. 2. Acute or subacute CVA in the left external capsule measures 1.8 x 1.0 cm. 3. To work up both these findings, an MRI may be helpful. 4. [id number] age-related change. ADDENDUM: 07/21/23 0328 THIS REPORT CONTAINS FINDINGS THAT MAY BE CRITICAL TO PATIENT CARE. The findings were verbally communicated via telephone conference at 3:26 AM CDT on 07/21/2023 with EMMANUEL MCDONALD. The findings were acknowledged and understood. Head/Neck CTA 07/21/23 03:23 IMPRESSION: No large vessel stenosis or occlusion. IMPRESSION: No stenosis or occlusion. REFERENCES: NASCET CRITERIA. The degree of stenosis in the cervical segment of the internal carotid artery is based on NASCET criteria. Normal is no stenosis. Mild is less than 50% stenosis. Moderate is 50-69% stenosis. Severe is 70% to 99% stenosis. Total occlusion is no detectable patent lumen. Laboratory Results WBC 8.43 10^3/uL (3.29-11.43) 07/22/23 04:35 RBC 4.49 10^6/uL (3.85-5.65) 07/22/23 04:35 Hgb 13.90 g/dL (11.27-16.99) 07/22/23 04:35 Hct 44.6 % (36-47) 07/22/23 04:35 MCV 99.3 fl (85-98) H 07/22/23 04:35 MCH 31.0 pg (27-33) 07/22/23 04:35 MCHC 31.2 g/dL (30-55) 07/22/23 04:35 RDW 15.4 % (12.1-15.1) H 07/22/23 04:35 Plt Count 162 10^3/cmm (157-399) 07/22/23 04:35 MPV 11.1 fL (7.4-10.4) H 07/22/23 04:35 Neut % (Auto) 60.4 % 07/22/23 04:35 Lymph % (Auto) 19.9 % 07/22/23 04:35 [place] % (Auto) 14.8 % 07/22/23 04:35 Eos % (Auto) 3.8 % 07/22/23 04:35 Baso % (Auto) 0.7 % 07/22/23 04:35 Neut # (Auto) 5.09 10^3/uL (1.8-7.7) 07/22/23 04:35 Lymph # (Auto) 1.7 10^3/uL (0.8-4.8) 07/22/23 04:35 [place] # (Auto) 1.3 10^3/uL (0.2-0.9) H 07/22/23 04:35 Eos # (Auto) 0.3 10^3/uL (0.0-0.8) 07/22/23 04:35 Baso # (Auto) 0.1 10^3/uL (0.0-0.1) 07/22/23 04:35 Nucleated RBC % (auto) 0 % 07/22/23 04:35 Nucleated RBCs # 0.0 /100WBC 07/22/23 04:35 Sodium 140 mmol/L (136-145) 07/22/23 04:35 Potassium 4.3 mmol/L (3.5-5.1) 07/22/23 04:35 Chloride 104 mmol/L (98-107) 07/22/23 04:35 Carbon Dioxide 27 mmol/L (22-29) 07/22/23 04:35 Anion Gap 13.3 (5-19) 07/22/23 04:35 BUN 13 mg/dL (8-23) 07/22/23 04:35 Creatinine 0.8 mg/dL (0.5-0.9) 07/22/23 04:35 GFR Calculation 71.1 mL/min (90-130) L 07/22/23 04:35 Glucose 127 mg/dL (65-115) H 07/22/23 04:35 Calculated Osmolality 292 mOsm/kg (285-295) 07/22/23 04:35 Calcium 8.8 mg/dL (8.5-10.5) 07/22/23 04:35 Phosphorus 4.1 mg/dL (2.5-4.5) 07/22/23 04:35 Magnesium 2.2 mg/dL (1.7-2.3) 07/22/23 04:35 Total Bilirubin 0.5 mg/dL (0.15-1.2) 07/22/23 04:35 AST 18 U/L (0-32) 07/22/23 04:35 ALT 18 U/L (0-33) 07/22/23 04:35 Alkaline Phosphatase 74 U/L (35-105) 07/22/23 04:35 Total Protein 5.6 g/dL (6.6-8.7) L 07/22/23 04:35 Albumin 3.7 g/dL (3.5-5.2) 07/22/23 04:35 Globulin 1.9 g/dL (1.3-4.6) 07/22/23 04:35 Vitals Last Vital Signs Temp 98.5 F 07/22/23 07:37 Pulse 77 07/22/23 07:37 Resp 18 07/22/23 07:37 BP 148/92 07/22/23 07:37 Pulse Ox 95 07/22/23 07:37 O2 Del Method Room Air 07/22/23 07:37 O2 Flow Rate 1.5 07/21/23 02:57 Discharge Plan Discharge Patient Disposition: Home Condition: Stable Prescriptions: New atorvastatin 40 mg tablet 40 mg PO DAILY Qty: 60 0RF Continued loperamide [Imodium A-D] 2 mg capsule 2 mg PO Q6H PRN (Reason: Diarrhea) diphenoxylate-atropine 2.5-0.025 mg/5 mL liquid 10 ml PO QID PRN (Reason: dirrhea) levocetirizine [Xyzal] 5 mg tablet 5 mg PO DAILY Qty: 90 1RF Xarelto 20 mg tablet 20 mg PO DAILY Qty: 90 0RF fluoxetine 40 mg capsule See Rx Instructions .ROUTE .COMPLEX Qty: 90 3RF Dose Instruction: TAKE 1 CAPSULE BY MOUTH DAILY Rx Instructions: TAKE 1 CAPSULE BY MOUTH DAILY bupropion HCl 300 mg tablet extended release 24 hr See Rx Instructions .ROUTE .COMPLEX Qty: 90 3RF Dose Instruction: TAKE 1 TABLET BY MOUTH DAILY Rx Instructions: TAKE 1 TABLET BY MOUTH DAILY levothyroxine 25 mcg tablet See Rx Instructions .ROUTE .COMPLEX Qty: 90 3RF Dose Instruction: TAKE 1 TABLET BY MOUTH DAILY Rx Instructions: TAKE 1 TABLET BY MOUTH DAILY simethicone 125 mg Capsule 125 mg PO DAILY PRN (Reason: gas) TheraTears 0.25 % Drops 1 drp OPHTHALMIC (EYE) QID PRN (Reason: Dry Eyes) Systane Gel 0.4-0.3 % Drops,Gel 1 drp OPHTHALMIC (EYE) Q2H PRN (Reason: Dry Eye(S)) Refresh Optive Advanced 0.5-1-0.5 % Drops 1 drp OPHTHALMIC (EYE) Q2H PRN (Reason: Dry Eyes) trazodone 150 mg tablet See Rx Instructions .ROUTE .COMPLEX PRN (Reason: Insomnia) Rx Instructions: TAKE 1 TABLET BY MOUTH DAILY Discharge Orders: Discharge Order (Routine); Ordered 07/22/23 Ordered By: Patricia Benoit Referrals: Lee Rudd MD [Physician] - 1-3 days Maru Henson FNP [Primary Care Provider] - 07/28/23 9:00 am Patient Instructions: Opioid Safety Activity Restrictions/Additional Instructions: For your migraine headache you can use Tylenol but if it gets moderately severe which is mostly associated with pain involving her eye, nausea, vomiting then you might need Imitrex I have given you referral to see our neurologist Your MRI head showed microvascular changes along the left external capsule which seems to be chronic atherosclerotic muscular vascular changes/AVM there is no active bleed however there is still a small risk of bleeding for now you can continue Xarelto and follow-up with neurologist to keep an eye on your symptoms and medications for Discharge Attestations Time Spent in Discharge Care*: greater than 30 min Quality Metrics Clinical Quality Measures [ No reported AMI, CVA or VTE this stay] Coding Level of Care Code Acute Code for Chg Fwd Diagnoses Headache R51.9 Cerebrovascular accident I63.9
[2023-07-22 11:12] VITALS: BP 148/92; PULSE 77; RESP 18; TEMP 36.9; O2SAT 95
[2023-07-22] MEDS: SUMAtriptan 25 mg Tablet PO (11:20)
== END 2023-07-22 11:26 | disposition home or self-care (01) ==
LOC: ER 04:55 → MEDSURG 05:00
PROVIDERS: Admitting Provider Internal Medicine; Emergency Provider Emergency Medicine; PCP Nurse Practitioner; Visit Provider Internal Medicine
DX: I63.9 Cerebral infarction, unspecified (principal); R51.9 Headache, unspecified; Z85.038 Personal history of other malignant neoplasm of large intestine; E03.9 Hypothyroidism, unspecified; Z86.718 Personal history of other venous thrombosis and embolism; Z87.891 Personal history of nicotine dependence
CPT/HCPCS: 36415; 70450; 70496; 70498; 70544; 70551; 80048; 80053; 83735; 84100; 85025; 96361; 96374; 96375; 97165; 99285; G0378; J0360; J1200; J2270; J2405; J2765; J7030; Q9967

== ENCOUNTER → 2023-07-30 16:20 | Outpatient (BNVA) | payer MEDICARE, OTHER, SELFPAY | PROVIDERS: PCP Nurse Practitioner Family; Visit Provider Nurse Practitioner Family | DX: H53.9 Unspecified visual disturbance (principal); Z86.718 Personal history of other venous thrombosis and embolism; E78.5 Hyperlipidemia, unspecified; N95.0 Postmenopausal bleeding | CPT/HCPCS: 87624; 88175 ==

== ENCOUNTER 2023-08-04 09:30 | Oncology outpatient (recurring) (ONCR) | payer MEDICARE, OTHER, SELFPAY ==
[2023-08-04 10:00] VITALS: BP 143/85; PULSE 81; RESP 16; TEMP 36.7; O2SAT 97
[2023-08-04 10:25] LABS: Basophils # 0.1 10^3/uL (0.0-0.1); Basophils % 0.8 %; Eosinophils # 0.5 10^3/uL (0.0-0.8); Eosinophils % 5.2 %; Hematocrit 45.8 % (36-47); Lymphocytes # 1.3 10^3/uL (0.8-4.8); Lymphocytes % 14.9 %; Mean Corpuscular HGB Conc 31.2 g/dL (30-55); Mean Corpuscular Hemoglobin 30.8 pg (27-33); Mean Corpuscular Volume 98.7 fl (85-98); Monocytes # 0.9 10^3/uL (0.2-0.9); Monocytes % 10.3 %; Neutrophils # 5.98 10^3/uL (1.8-7.7); Neutrophils % 68.6 %; Nucleated Red Blood Cells % 0 %; Platelet Count 204 10^3/cmm (157-399); Red Blood Count 4.64 10^6/uL (3.85-5.65); Red Cell Distribution Width 14.3 % (12.1-15.1); White Blood Count 8.72 10^3/uL (3.29-11.43)
[2023-08-04 10:54] LABS: Carcinoembryonic Antigen 3.7 ng/mL (0.0-4.7)
[2023-08-04 11:05] LABS: Alanine Aminotransferase 19 U/L (0-33); Albumin Level 3.9 g/dL (3.5-5.2); Alkaline Phosphatase 76 U/L (35-105); Anion Gap 12.9 (5-19); Aspartate Amino Transferase 18 U/L (0-32); Blood Urea Nitrogen 12 mg/dL (8-23); Calcium 9.3 mg/dL (8.5-10.5); Carbon Dioxide 26 mmol/L (22-29); Chloride 106 mmol/L (98-107); Globulin 1.8 g/dL (1.3-4.6); Glomerular Filtration Rate 71.1 mL/min (90-130); Glucose 147 mg/dL (65-115); Osmolality Calculated 294 mOsm/kg (285-295); Potassium 3.9 mmol/L (3.5-5.1); Sodium 141 mmol/L (136-145); Total Bilirubin 0.4 mg/dL (0.15-1.2); Total Protein 5.7 g/dL (6.6-8.7)
[2023-08-04 11:32] LABS: Add Urine Microscopic? YES; Bilirubin Urine Neg (Negative); Blood Urine Neg (Negative); Glucose Urine UA Norm (Normal); Ketones Urine Negative (Negative); Leukocyte Esterase Urine Trace (Negative); Nitrate Urine Negative (Negative); Protein Urine Neg (Negative); Urine Appearance Cloudy (CLEAR); Urine Color Dark Yellow (Yellow); Urobilinogen Urine Norm (Negative); pH Urine 5 (5-7)
[2023-08-04 11:42] LABS: Bacteria Urine TRACE /hpf; Mucus Urine 3+ /hpf; RBC Urine 0-4 /hpf (0-2); Squamous Epithelial Cell Urine 0-4 /hpf (0-5); WBC Urine 40-55 /hpf (0-5)
[2023-08-04 11:43] LABS: Calcium Oxalate Crystals Urine 40-55 /hpf
[2023-08-04 11:44] LABS: Add Urine Culture? No
== END 2023-08-04 23:59 | disposition home or self-care (01) ==
PROVIDERS: PCP Nurse Practitioner; Visit Provider Internal Medicine Medical Oncology
DX: C18.9 Malignant neoplasm of colon, unspecified (principal); C78.7 Secondary malignant neoplasm of liver and intrahepatic bile duct; Z79.899 Other long term (current) drug therapy
CPT/HCPCS: 80053; 81001; 82378; 85025; 99204; 99215; J1642

== ENCOUNTER → 2023-08-11 12:47 | Outpatient (BNVA) | payer MEDICARE, OTHER, SELFPAY | PROVIDERS: PCP Nurse Practitioner Family; Visit Provider Psychiatry & Neurology Neurology | DX: Q28.3 Other malformations of cerebral vessels (principal); Z86.73 Personal history of transient ischemic attack (TIA), and cerebral infarction without residual deficits | CPT/HCPCS: 99203 ==

== ENCOUNTER 2023-09-01 09:00 | Oncology outpatient (recurring) (ONCR) | payer MEDICARE, OTHER, SELFPAY ==
[2023-08-18 08:34] VITALS: BP 129/87; PULSE 79; RESP 18; TEMP 36.6; O2SAT 97
[2023-08-18 08:35] LABS: Basophils # 0.1 10^3/uL (0.0-0.1); Basophils % 0.9 %; Eosinophils # 0.3 10^3/uL (0.0-0.8); Eosinophils % 4.2 %; Hematocrit 45.5 % (36-47); Lymphocytes # 1.4 10^3/uL (0.8-4.8); Lymphocytes % 17.7 %; Mean Corpuscular HGB Conc 32.1 g/dL (30-55); Mean Corpuscular Hemoglobin 31.1 pg (27-33); Mean Corpuscular Volume 96.8 fl (85-98); Monocytes # 0.9 10^3/uL (0.2-0.9); Monocytes % 10.7 %; Neutrophils # 5.39 10^3/uL (1.8-7.7); Neutrophils % 66.3 %; Nucleated Red Blood Cells % 0 %; Platelet Count 168 10^3/cmm (157-399); Red Cell Distribution Width 13.5 % (12.1-15.1); White Blood Count 8.13 10^3/uL (3.29-11.43)
[2023-08-18 08:58] LABS: Alanine Aminotransferase 24 U/L (0-33); Alkaline Phosphatase 71 U/L (35-105); Anion Gap 13.4 (5-19); Aspartate Amino Transferase 25 U/L (0-32); Blood Urea Nitrogen 14 mg/dL (8-23); Calcium 9.2 mg/dL (8.5-10.5); Carbon Dioxide 30 mmol/L (22-29); Chloride 104 mmol/L (98-107); Globulin 1.9 g/dL (1.3-4.6); Glomerular Filtration Rate 71.1 mL/min (90-130); Glucose 155 mg/dL (65-115); Osmolality Calculated 300 mOsm/kg (285-295); Potassium 4.4 mmol/L (3.5-5.1); Sodium 143 mmol/L (136-145); Total Bilirubin 0.6 mg/dL (0.15-1.2); Total Protein 5.9 g/dL (6.6-8.7)
[2023-08-18 09:14] LABS: Add Urine Microscopic? YES; Bilirubin Urine Neg (Negative); Blood Urine Neg (Negative); Glucose Urine UA Norm (Normal); Ketones Urine Negative (Negative); Leukocyte Esterase Urine 2+ (Negative); Nitrate Urine Negative (Negative); Protein Urine Trace (Negative); Urine Appearance Hazy (CLEAR); Urine Color Yellow (Yellow); Urobilinogen Urine Neg (Negative); pH Urine 5 (5-7)
[2023-08-18 09:15] LABS: Bacteria Urine 1+ /hpf; Mucus Urine 2+ /hpf; RBC Urine RARE /hpf (0-2); Squamous Epithelial Cell Urine 0-4 /hpf (0-5); WBC Urine 55-80 /hpf (0-5)
[2023-08-18 09:16] LABS: Add Urine Culture? Yes
[2023-08-18] MEDS: dextrose 5% 250 ML 75 ML IV (10:33)
[2023-08-18] MEDS: palonosetron 0.25 mg/5 mL SDV IVP (10:34)
[2023-08-18] MEDS: bevacizumab-awwb 400 MG, bevacizumab-awwb 120 MG in sodium chloride 0.9% (100 ml) 100 ML 175 MG IV (10:59)
[2023-08-18] MEDS: leucovorin 860 MG in dextrose 5% 250 ML 600 MG IV (11:55)
[2023-08-18] MEDS: sodium chloride 0.9% 1,000 ML 999 ML IV (12:35)
[2023-08-18] MEDS: fluorouraciL 5,200 MG, elastomeric pump 1 PUMP in sodium chloride 0.9% (100 ml) 126 ML IV (13:48)
[2023-08-18 14:00] VITALS: BP 154/85; PULSE 72; RESP 16; TEMP 36.4; O2SAT 93
[2023-08-20] MEDS: sodium chloride 0.9% 1,000 ML 999 ML IV (11:37)
[2023-08-20 13:05] VITALS: BP 143/86; PULSE 73; O2SAT 99
[2023-09-01 09:05] VITALS: BP 122/81; PULSE 97; RESP 16; TEMP 36.2; O2SAT 91
[2023-09-01 09:38] LABS: Basophils # 0.1 10^3/uL (0.0-0.1); Eosinophils # 0.4 10^3/uL (0.0-0.8); Eosinophils % 5.6 %; Lymphocytes # 1.4 10^3/uL (0.8-4.8); Lymphocytes % 18.7 %; Mean Corpuscular HGB Conc 31.4 g/dL (30-55); Mean Corpuscular Hemoglobin 30.7 pg (27-33); Mean Corpuscular Volume 97.7 fl (85-98); Mean Platelet Volume 11.1 fL (7.4-10.4); Monocytes # 0.8 10^3/uL (0.2-0.9); Monocytes % 10.6 %; Neutrophils # 4.64 10^3/uL (1.8-7.7); Neutrophils % 63.8 %; Nucleated Red Blood Cells % 0 %; Platelet Count 200 10^3/cmm (157-399); Red Blood Count 5.12 10^6/uL (3.85-5.65); Red Cell Distribution Width 14.4 % (12.1-15.1); White Blood Count 7.27 10^3/uL (3.29-11.43)
[2023-09-01 09:39] LABS: Urine Appearance Clear (CLEAR); Urine Color Dark Yellow (Yellow); pH Urine 5 (5-7)
[2023-09-01 09:40] LABS: Add Urine Microscopic? YES; Bilirubin Urine Neg (Negative); Blood Urine Trace (Negative); Glucose Urine UA Norm (Normal); Ketones Urine 1+ (Negative); Leukocyte Esterase Urine Negative (Negative); Nitrate Urine Negative (Negative); Protein Urine 1+ (Negative); Urobilinogen Urine Norm (Negative)
[2023-09-01 09:43] LABS: Add Urine Culture? No; Bacteria Urine 1+ /hpf; Mucus Urine 1+ /hpf; RBC Urine 0-4 /hpf (0-2); Squamous Epithelial Cell Urine 0-4 /hpf (0-5); WBC Urine 0-4 /hpf (0-5)
[2023-09-01 10:12] LABS: Alanine Aminotransferase 38 U/L (0-33); Albumin Level 4.1 g/dL (3.5-5.2); Alkaline Phosphatase 91 U/L (35-105); Anion Gap 17.3 (5-19); Aspartate Amino Transferase 25 U/L (0-32); Blood Urea Nitrogen 13 mg/dL (8-23); Calcium 9.6 mg/dL (8.5-10.5); Carbon Dioxide 27 mmol/L (22-29); Chloride 100 mmol/L (98-107); Globulin 2.1 g/dL (1.3-4.6); Glomerular Filtration Rate 62.1 mL/min (90-130); Glucose 143 mg/dL (65-115); Osmolality Calculated 293 mOsm/kg (285-295); Potassium 4.3 mmol/L (3.5-5.1); Sodium 140 mmol/L (136-145); Total Bilirubin 0.7 mg/dL (0.15-1.2); Total Protein 6.2 g/dL (6.6-8.7)
[2023-09-01] MEDS: sodium chloride 0.9% 250 ML 75 ML IV (12:18)
[2023-09-01] MEDS: palonosetron 0.25 mg/5 mL SDV IVP (12:19)
[2023-09-01] MEDS: sodium chloride 0.9% 1,000 ML 999 ML IV (12:29)
[2023-09-01] MEDS: bevacizumab-awwb 400 MG, bevacizumab-awwb 120 MG in sodium chloride 0.9% (100 ml) 100 ML 240 MG IV (14:13)
[2023-09-01] MEDS: leucovorin 860 MG in dextrose 5% 250 ML 166.67 MG IV (14:47)
[2023-09-01] MEDS: fluorouraciL 5,200 MG, elastomeric pump 1 PUMP in sodium chloride 0.9% (100 ml) 126 ML IV (15:21)
== END 2023-09-01 23:59 | disposition home or self-care (01) ==
PROVIDERS: Internal Medicine Medical Oncology; Nurse Practitioner Family; PCP Nurse Practitioner Family; Visit Provider Radiology Radiation Oncology
DX: C18.9 Malignant neoplasm of colon, unspecified (principal); C78.7 Secondary malignant neoplasm of liver and intrahepatic bile duct; Z79.899 Other long term (current) drug therapy; Z51.11 Encounter for antineoplastic chemotherapy
CPT/HCPCS: 80053; 81001; 85025; 87086; 96360; 96367; 96375; 96413; 96416; 96523; 99214; J0640; J1100; J1642; J2469; J7030; J7050; J7060; J9190; Q5107

== ENCOUNTER 2023-09-03 08:08 | Outpatient (CLI) | payer MEDICARE, OTHER, SELFPAY ==
--- NOTE | 2023-09-03 08:30 | CT_ITS ---
WS: [id number] CT CHEST, ABDOMEN, AND PELVIS TECHNIQUE: Contrast-enhanced CT of the chest, abdomen, and pelvis with coronal and sagittal reformatt ed images. CLINICAL INFORMATION: surveillance. Colon cancer. COMPARISON: Outside CT 05/06/2023 DLP: 1218.[address] scans at [facility] use at least one of these dose optimization techniques: automated e xposure control; mA and/or kV adjustment per patient size (includes targeted exams where dose is matc hed to clinical indication); or iterative reconstruction. CT CHEST: Lungs are well aerated. Several scattered micronodules in both lungs. A few small hazy slightly spicu lated opacities in the LEFT upper lobe appear slightly more prominent today suspicious for metastatic disease considering abdominal findings. A few tiny nodules in the RIGHT upper lobe. Some of these ap pear slightly more prominent today. Largest opacity in the LEFT upper lobe anteriorly measures 6 mm. Normal caliber thoracic aorta. Proximal main pulmonary arteries are normal. No mediastinal or hilar l ymphadenopathy. No axillary lymphadenopathy. CT ABDOMEN AND PELVIS: Diffuse fatty filtration of the liver. Normal gallbladder. Normal portal vein and splenic vein. No me tastatic hepatic lesions. Normal spleen. Normal GE junction. Normal pancreatic parenchymal enhancemen t. Normal caliber abdominal aorta. Adrenal glands are normal. Normal renal parenchymal enhancement. N o hydronephrosis. Normal caliber abdominal aorta. [place] fat-containing ventral abdominal wall hernia just inferior to the umbilicus with a small kn uckle of protruding small bowel. No evidence of obstruction. Normal sigmoid colon. No evidence of hig h-grade small or large bowel obstruction. Soft tissue spiculation in the mesentery just inferior to t he anastomosis RIGHT colon extending into the RIGHT lower abdomen with soft tissue nodularity is prog ressed compared to previous suspicious for progressed disease. Largest areas of nodularity measure 2. 9 x 1.8 cm and 2.1 cm. This could be further evaluated with PET/CT to assess for activity. Subtotal R IGHT colectomy. Progressed enlarged suspicious LEFT periaortic lymphadenopathy measuring 2.1 cm. No visualized pelvic or inguinal lymphadenopathy. Normal lumbar spine. IMPRESSION: 1. Evidence of progressed disease within the RIGHT lower quadrant and RIGHT lower abdomen with spicu lated omental nodules described above near the anastomosis. Consider PET/CT to evaluate for active di sease. 2. Numerous subcentimeter pulmonary nodules and slightly spiculated opacities a few of which are new compared to previous and slowly enlarging suspicious for metastatic disease. 3. New/progressed LEFT periaortic lymphadenopathy.
[2023-09-03] MEDS: iohexol 350 mg/mL 500 mL Btl (per mL) PO (09:48)
[2023-09-03] MEDS: iohexol 350 mg/mL 500 mL Btl (per mL) IV (09:49)
== END 2023-09-03 08:09 | disposition home or self-care (01) ==
LOC: RAD 08:08
PROVIDERS: PCP Nurse Practitioner Family; Visit Provider Nurse Practitioner Family
DX: C18.9 Malignant neoplasm of colon, unspecified (principal); C78.7 Secondary malignant neoplasm of liver and intrahepatic bile duct; R91.8 Other nonspecific abnormal finding of lung field; R59.0 Localized enlarged lymph nodes; Z98.0 Intestinal bypass and anastomosis status
CPT/HCPCS: 71260; 74177; Q9967

== ENCOUNTER 2023-09-03 09:57 | Oncology outpatient (recurring) (ONCR) | payer MEDICARE, OTHER, SELFPAY ==
[2023-09-03] MEDS: sodium chloride 0.9% 1,000 ML 999 ML IV (10:50)
[2023-09-03 12:15] VITALS: BP 136/73; PULSE 79; RESP 16; TEMP 36.2
== END 2023-09-03 23:59 | disposition home or self-care (01) ==
LOC: ONCMED 09:58
PROVIDERS: PCP Nurse Practitioner Family; Visit Provider Radiology Radiation Oncology
DX: C18.9 Malignant neoplasm of colon, unspecified (principal); C78.7 Secondary malignant neoplasm of liver and intrahepatic bile duct; R91.8 Other nonspecific abnormal finding of lung field; R59.0 Localized enlarged lymph nodes; Z98.0 Intestinal bypass and anastomosis status
CPT/HCPCS: 71260; 74177; 96365; 96523; J1642; J7030; Q9967

== ENCOUNTER 2023-09-15 08:53 | Oncology outpatient (recurring) (ONCR) | payer MEDICARE, OTHER, SELFPAY ==
[2023-09-15 09:05] VITALS: BP 136/84; PULSE 104; RESP 16; TEMP 36.2; O2SAT 96
[2023-09-15 09:26] LABS: Add Urine Microscopic? NO; Charge for UA Resulting for Rev
[2023-09-15 09:34] LABS: Basophils # 0.1 10^3/uL (0.0-0.1); Basophils % 0.8 %; Eosinophils # 0.3 10^3/uL (0.0-0.8); Eosinophils % 3.7 %; Hematocrit 49.7 % (36-47); Lymphocytes # 1.2 10^3/uL (0.8-4.8); Lymphocytes % 15.6 %; Mean Corpuscular Volume 96.9 fl (85-98); Mean Platelet Volume 11.1 fL (7.4-10.4); Monocytes # 0.8 10^3/uL (0.2-0.9); Monocytes % 10.1 %; Neutrophils # 5.42 10^3/uL (1.8-7.7); Neutrophils % 69.5 %; Nucleated Red Blood Cells % 0 %; Platelet Count 181 10^3/cmm (157-399); Red Blood Count 5.13 10^6/uL (3.85-5.65); Red Cell Distribution Width 14.3 % (12.1-15.1)
[2023-09-15 09:37] LABS: Bilirubin Urine Neg (Negative); Blood Urine Neg (Negative); Glucose Urine UA Norm (Normal); Ketones Urine Negative (Negative); Leukocyte Esterase Urine Negative (Negative); Nitrate Urine Negative (Negative); Protein Urine Neg (Negative); Urine Appearance Clear (CLEAR); Urine Color Yellow (Yellow); Urobilinogen Urine Norm (Negative); pH Urine 5 (5-7)
[2023-09-15 10:12] LABS: Alanine Aminotransferase 39 U/L (0-33); Albumin Level 4.1 g/dL (3.5-5.2); Alkaline Phosphatase 92 U/L (35-105); Anion Gap 14.6 (5-19); Aspartate Amino Transferase 28 U/L (0-32); Blood Urea Nitrogen 12 mg/dL (8-23); Calcium 9.3 mg/dL (8.5-10.5); Carbon Dioxide 26 mmol/L (22-29); Chloride 102 mmol/L (98-107); Globulin 2.1 g/dL (1.3-4.6); Glomerular Filtration Rate 49.2 mL/min (90-130); Glucose 145 mg/dL (65-115); Osmolality Calculated 290 mOsm/kg (285-295); Potassium 3.6 mmol/L (3.5-5.1); Sodium 139 mmol/L (136-145); Total Bilirubin 0.7 mg/dL (0.15-1.2); Total Protein 6.2 g/dL (6.6-8.7)
[2023-09-15 12:35] LABS: Carcinoembryonic Antigen 4.3 ng/mL (0.0-4.7)
[2023-09-15] MEDS: sodium chloride 0.9% 1,000 ML 999 ML IV (14:02)
[2023-09-15] MEDS: sodium chloride 0.9% 250 ML 75 ML IV (14:02)
[2023-09-15] MEDS: palonosetron 0.25 mg/5 mL SDV IVP (14:03)
[2023-09-15] MEDS: bevacizumab-awwb 400 MG, bevacizumab-awwb 120 MG in sodium chloride 0.9% (100 ml) 100 ML 240 MG IV (14:37)
[2023-09-15 15:25] VITALS: BP 149/89; PULSE 82; RESP 16; TEMP 36.7; O2SAT 96
== END 2023-10-04 23:59 | disposition home or self-care (01) ==
LOC: ONCMED 08:54
PROVIDERS: Internal Medicine; Nurse Practitioner Family; PCP Nurse Practitioner Family; Visit Provider Radiology Radiation Oncology
DX: C18.9 Malignant neoplasm of colon, unspecified (principal); C78.7 Secondary malignant neoplasm of liver and intrahepatic bile duct; Z51.11 Encounter for antineoplastic chemotherapy; Z79.899 Other long term (current) drug therapy; Z53.9 Procedure and treatment not carried out, unspecified reason
CPT/HCPCS: 80053; 81003; 82378; 85025; 96367; 96413; 99215; J1100; J1642; J2469; J7030; J7050; Q5107

== ENCOUNTER 2023-10-27 09:53 | Oncology outpatient (recurring) (ONCR) | payer MEDICARE, OTHER, SELFPAY ==
[2023-10-27 11:05] LABS: Basophils # 0.1 10^3/uL (0.0-0.1); Basophils % 0.6 %; Eosinophils # 0.3 10^3/uL (0.0-0.8); Eosinophils % 2.9 %; Hematocrit 51.7 % (36-47); Lymphocytes # 1.7 10^3/uL (0.8-4.8); Lymphocytes % 15.3 %; Mean Corpuscular HGB Conc 32.5 g/dL (30-55); Mean Corpuscular Hemoglobin 30.2 pg (27-33); Mean Platelet Volume 10.9 fL (7.4-10.4); Neutrophils # 7.73 10^3/uL (1.8-7.7); Neutrophils % 71.9 %; Nucleated Red Blood Cells % 0 %; Platelet Count 220 10^3/cmm (157-399); Red Blood Count 5.56 10^6/uL (3.85-5.65); Red Cell Distribution Width 13.6 % (12.1-15.1); White Blood Count 10.75 10^3/uL (3.29-11.43)
[2023-10-27 11:31] LABS: Carcinoembryonic Antigen 3.4 ng/mL (0.0-4.7)
[2023-10-27 11:42] LABS: Alanine Aminotransferase 24 U/L (0-33); Albumin Level 3.9 g/dL (3.5-5.2); Alkaline Phosphatase 117 U/L (35-105); Anion Gap 14.2 (5-19); Aspartate Amino Transferase 26 U/L (0-32); Blood Urea Nitrogen 9 mg/dL (8-23); Calcium 9.7 mg/dL (8.5-10.5); Carbon Dioxide 29 mmol/L (22-29); Chloride 97 mmol/L (98-107); Globulin 2.6 g/dL (1.3-4.6); Glomerular Filtration Rate 71.1 mL/min (90-130); Glucose 115 mg/dL (65-115); Osmolality Calculated 282 mOsm/kg (285-295); Potassium 4.2 mmol/L (3.5-5.1); Sodium 136 mmol/L (136-145); Total Bilirubin 0.4 mg/dL (0.15-1.2); Total Protein 6.5 g/dL (6.6-8.7)
[2023-10-27] MEDS: palonosetron 0.25 mg/5 mL SDV IVP (11:50)
[2023-10-27] MEDS: sodium chloride 0.9% 250 ML 75 ML IV (12:00)
[2023-10-27 12:24] LABS: Add Urine Microscopic? NO; Charge for UA Resulting for Rev
[2023-10-27 12:35] LABS: Bilirubin Urine Neg (Negative); Blood Urine Neg (Negative); Glucose Urine UA Norm (Normal); Ketones Urine Negative (Negative); Leukocyte Esterase Urine Negative (Negative); Nitrate Urine Negative (Negative); Protein Urine Neg (Negative); Specific Gravity, Urine 1.015 (1.005-1.030); Urine Appearance Clear (CLEAR); Urine Color Light yellow (Yellow); Urobilinogen Urine Norm (Negative); pH Urine 6 (5-7)
[2023-10-27] MEDS: BEVACIZUMAB AWWB IV (12:40)
[2023-10-27] MEDS: SODIUM CHLORIDE 0.9% IV (12:40)
[2023-10-27 13:22] VITALS: BP 123/83; PULSE 90; TEMP 36.6; O2SAT 90
== END 2023-11-04 23:59 | disposition home or self-care (01) ==
PROVIDERS: PCP Nurse Practitioner Family; Visit Provider Internal Medicine
DX: C18.9 Malignant neoplasm of colon, unspecified (principal); C78.7 Secondary malignant neoplasm of liver and intrahepatic bile duct; Z51.11 Encounter for antineoplastic chemotherapy; Z79.899 Other long term (current) drug therapy; Z53.9 Procedure and treatment not carried out, unspecified reason
CPT/HCPCS: 80053; 81003; 82378; 85025; 96375; 96413; 99215; J1642; J2469; J7050; Q5107

== ENCOUNTER → 2023-11-06 13:50 | Outpatient (BNVA) | payer MEDICARE, OTHER, SELFPAY | PROVIDERS: PCP Nurse Practitioner Family; Visit Provider Nurse Practitioner Family | DX: R14.0 Abdominal distension (gaseous) (principal); C18.9 Malignant neoplasm of colon, unspecified; K56.7 Ileus, unspecified | CPT/HCPCS: 74018 ==

== ENCOUNTER 2023-11-06 15:22 | Emergency (ER) | payer MEDICARE, OTHER, SELFPAY ==
[2023-11-06] VITALS (8 sets, daily range): BP systolic 127–170; BP diastolic 79–111; PULSE 79–90; RESP 14–18; TEMP 36.7; O2SAT 92–97
--- NOTE | 2023-11-06 15:55 | W.ED.ABDPA2 ---
Documented by User: Markie Lion DO 11/06/23 17:19 HPI - Abdominal Pain General: Chief Complaint: Abdominal Pain Stated Complaint: abd pain Time Seen by Provider: 11/06/23 15:49 History of Present Illness: 15-year-old female presents emergency room with complaint of abdominal pain with nausea. She is having what she describes as foamy liquid bowel movements. She has not had any hematochezia. She has a known history of colon cancer is currently on the suppressive therapy was not getting any active chemo or radiation. 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 Hypothyroid Patient has remained well controlled with Levothyroxine. Anxiety Patient has history of anxiety that is currently well controlled with medication Hyperlipemia Patient continues to take Statin Medication without adverse reaction. Surgical History Status post bilateral knee replacements S/P appendectomy Status post colonoscopy (06/19/20) cecal mass Social History Smoking and tobacco/nicotine status: former use of tobacco/nicotine Quit status (tobacco/nicotine): has quit using Year quit tobacco: 2016 Former quit date comment: Smoked for 40 years Second hand smoke exposure: No Alcohol intake: never Substance/Drug Use: never Course Vital Signs: Vital signs: Vital Signs Temperature 98.0 F 11/06/23 15:28 Pulse Rate 83 11/06/23 19:33 Respiratory Rate 14 11/06/23 15:28 Blood Pressure 156/97 11/06/23 19:33 Pulse Oximetry 93 11/06/23 19:33 Oxygen Delivery Me thod Room Air 11/06/23 18:35 MDM - Abdominal Pain Medical Decision Making Care signed out to Dr. Cardenas at change of shift. See final notes for diagnosis and disposition. Lab Data 11/06/23 15:47 11/06/23 15:47 Labs/Radiology: Radiology Impressions Abdomen/Pelvis CT 11/06/23 16:09 IMPRESSION: Enlarging mesenteric masses, mesenteric adenopathy and periaortic adenopathy indicating interval progression of disease since 09/03/2023. Laboratory Results WBC 8.35 10^3/uL (3.29-11.43) 11/06/23 15:47 RBC 5.50 10^6/uL (3.85-5.65) 11/06/23 15:47 Hgb 16.50 g/dL (11.27-16.99) 11/06/23 15:47 Hct 50.8 % (36-47) H 11/06/23 15:47 MCV 92.4 fl (85-98) 11/06/23 15:47 MCH 30.0 pg (27-33) 11/06/23 15:47 MCHC 32.5 g/dL (30-55) 11/06/23 15:47 RDW 13.5 % (12.1-15.1) 11/06/23 15:47 Plt Count 234 10^3/cmm (157-399) 11/06/23 15:47 MPV 10.9 fL (7.4-10.4) H 11/06/23 15:47 Neut % (Auto) 60.5 % 11/06/23 15:47 Lymph % (Auto) 26.3 % 11/06/23 15:47 [place] % (Auto) 9.3 % 11/06/23 15:47 Eos % (Auto) 3.1 % 11/06/23 15:47 Baso % (Auto) 0.6 % 11/06/23 15:47 Neut # (Auto) 5.04 10^3/uL (1.8-7.7) 11/06/23 15:47 Lymph # (Auto) 2.2 10^3/uL (0.8-4.8) 11/06/23 15:47 [place] # (Auto) 0.8 10^3/uL (0.2-0.9) 11/06/23 15:47 Eos # (Auto) 0.3 10^3/uL (0.0-0.8) 11/06/23 15:47 Baso # (Auto) 0.1 10^3/uL (0.0-0.1) 11/06/23 15:47 Nucleated RBC % (auto) 0.4 % 11/06/23 15:47 Nucleated RBCs # 0.0 /100WBC 11/06/23 15:47 Sodium 135 mmol/L (136-145) L 11/06/23 15:47 Potassium 4.1 mmol/L (3.5-5.1) 11/06/23 15:47 Chloride 93 mmol/L (98-107) L 11/06/23 15:47 Carbon Dioxide 31 mmol/L (22-29) H 11/06/23 15:47 Anion Gap 15.1 (5-19) 11/06/23 15:47 BUN 12 mg/dL (8-23) 11/06/23 15:47 Creatinine 0.9 mg/dL (0.5-0.9) 11/06/23 15:47 GFR Calculation 62.1 mL/min (90-130) L 11/06/23 15:47 Glucose 112 mg/dL (65-115) 11/06/23 15:47 Calculated Osmolality 281 mOsm/kg (285-295) L 11/06/23 15:47 Lactic Acid 1.1 mmol/L (0.5-2.2) 11/06/23 16:17 Calcium 9.3 mg/dL (8.5-10.5) 11/06/23 15:47 Magnesium 2.2 mg/dL (1.7-2.3) 11/06/23 15:47 Total Bilirubin 1.1 mg/dL (0.15-1.2) 11/06/23 15:47 AST 25 U/L (0-32) 11/06/23 15:47 ALT 20 U/L (0-33) 11/06/23 15:47 Alkaline Phosphatase 111 U/L (35-105) H 11/06/23 15:47 Total Protein 6.5 g/dL (6.6-8.7) L 11/06/23 15:47 Albumin 4.0 g/dL (3.5-5.2) 11/06/23 15:47 Globulin 2.5 g/dL (1.3-4.6) 11/06/23 15:47 Lipase 15 U/L (13-60) 11/06/23 15:47 Urine Color Yellow (Yellow) 11/06/23 18:27 Urine Appearance Hazy (CLEAR) A 11/06/23 18:27 Urine pH 7 (5-7) 11/06/23 18:27 Ur Specific [place] 1.000 (1.005-1.030) L 11/06/23 18:27 Urine Protein Neg (Negative) 11/06/23 18:27 Urine Glucose (UA) Norm (Normal) 11/06/23 18:27 Urine Ketones 1+ (Negative) H 11/06/23 18:27 Urine Blood Neg (Negative) 11/06/23 18:27 Urine Nitrate Negative (Negative) 11/06/23 18:27 Urine Bilirubin Neg (Negative) 11/06/23 18:27 Urine Urobilinogen Norm mg/dL (Negative) 11/06/23 18:27 Ur Leukocyte Esterase 2+ (Negative) H 11/06/23 18:27 Urine RBC 0-4 /hpf (0-2) H 11/06/23 18:27 Urine WBC 15-25 /hpf (0-5) H 11/06/23 18:27 Ur Squamous Epith Cells 0-4 /hpf (0-5) H 11/06/23 18:27 Amorphous Sediment Trace /hpf 11/06/23 18:27 Urine Bacteria Trace /hpf (NONE) 11/06/23 18:27 All radiology interpretation(s) finalized by discharge Discharge Plan Discharge Patient Disposition: Home Clinical Impression: Acute lower urinary tract infection Abdominal pain Qualifiers: Abdominal location: generalized Qualified Code(s): R10.84 - Generalized abdominal pain Condition: Stable Prescriptions: New docusate sodium [Colace] 100 mg capsule 100 mg PO TID PRN (Reason: constipation ) Qty: 30 0RF Bactrim DS 800-160 mg tablet 1 tab PO BID Qty: 20 0RF No Action Xarelto 20 mg tablet 20 mg PO DAILY 90 Days Qty: 90 1RF loperamide [Imodium A-D] 2 mg capsule 2 mg PO Q6H PRN (Reason: Diarrhea) [place] 15-6.14 mg tablet 1 tab PO BID 10 Days Qty: 20 0RF Rx Instructions: must take within 1 hr after completion of meal Take days 1-5 and 8-12 of a 28 day cycle [place]f 20-8.19 mg tablet 3 tab PO BID 10 Days Qty: 60 0RF Rx Instructions: must take within 1 hr after completion of meal; administer days 1-5 and 8 through 12 of 28-day cycle azithromycin 250 mg tablet See Rx Instructions PO .COMPLEX Qty: 6 0RF Rx Instructions: take 500 mg today (day 1), then 250 mg for 4 days (days 2-5) PO prochlorperazine maleate 10 mg tablet 10 mg PO Q6H PRN (Reason: nausea and vomiting) Qty: 30 0RF ondansetron HCl 8 mg tablet 8 mg PO Q8H PRN (Reason: nausea and vomiting) Qty: 10 0RF simethicone 125 mg Capsule 125 mg PO DAILY PRN (Reason: gas) Systane Gel 0.4-0.3 % Drops,Gel 1 drp OPHTHALMIC (EYE) Q2H PRN (Reason: Dry Eye(S)) trazodone 150 mg tablet 150 mg PO BEDTIME PRN (Reason: Insomnia) fluoxetine 40 mg capsule 40 mg PO DAILY levothyroxine 25 mcg tablet 25 mcg PO DAILY bupropion HCl 300 mg tablet extended release 24 hr 300 mg PO DAILY Discharge Orders: Discharge ED (Routine); Ordered 11/06/23 Ordered By: Giancarlo Cardenas Referrals: AXEL Mir, MUSTAPHA [Primary Care Provider] - 1 week Patient Instructions: Urinary Tract Infection in Women (ED), Abdominal Pain (ED) Activity Restrictions/Additional Instructions: Your lab work performed in ER showed you have a urinary tract infection. You are given Bactrim in ER. You will be discharged home with a prescription for Bactrim to finish your full course. Please follow-up with your family practice physician within the next 7 days for further evaluation and treatment. 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 Hypothyroid Patient has remained well controlled with Levothyroxine. Anxiety Patient has history of anxiety that is currently well controlled with medication Hyperlipemia Patient continues to take Statin Medication without adverse reaction. Surgical History Status post bilateral knee replacements S/P appendectomy Status post colonoscopy (06/19/20) cecal mass Social History Smoking and tobacco/nicotine status: former use of tobacco/nicotine Quit status (tobacco/nicotine): has quit using Year quit tobacco: 2016 Former quit date comment: Smoked for 40 years Second hand smoke exposure: No Alcohol intake: never Substance/Drug Use: never Physical Exam Const: COMMON NORMALS: no acute distress, average body habitus, patient oriented x3, no limitations, healthy appearing, alert and well nourished Neck/C-Spine: COMMON NORMALS: no JVD Chest: COMMONS NORMALS: normal inspection of the chest and normal palpation of entire chest wall Resp: COMMON NORMALS: normal respiratory effort, No retractions, No use of accessory muscles and clear to auscultation bilaterally AUSCULTATION: clear to auscultation bilaterally Cardio: COMMON NORMALS: no JVD, regular rhythm, S1 normal heart sound present, S2 normal heart sound present, No gallops present (Cardio), No clicks present (Cardio), No murmurs present (Cardio) and No rub (Cardio) RHYTHM: regular rhythm HEART SOUNDS: S1 normal heart sound present and S2 normal heart sound present GI: COMMON NORMALS: Normal to inspection, nondistended, normoactive bowel sounds present, Soft to palpation, non-tender, No hepatosplenomegaly present and no masses PALPATION: Yes Soft to palpation and Yes No hepatosplenomegaly present Neuro: COMMON NORMALS: patient oriented x3 SENSORIUM/ORIENTATION: Yes alert Course Vital Signs: Vital signs: Vital Signs Temperature 98.0 F 11/06/23 15:28 Pulse Rate 83 11/06/23 19:33 Respiratory Rate 14 11/06/23 15:28 Blood Pressure 156/97 11/06/23 19:33 Pulse Oximetry 93 11/06/23 19:33 Oxygen Delivery Me thod Room Air 11/06/23 18:35 MDM - Abdominal Pain Medical Decision Making Care signed out to Dr. Cardenas at change of shift. See final notes for diagnosis and disposition. CT scan lab work reviewed CT scan showed enlarging mesenteric mass, patient has known colon cancer. Urinalysis showed positive for urinary tract infection. Patient be given 1 Bactrim DS here and discharged with a prescription for Bactrim DS. Patient to follow-up with her PCP within the next 7 days. Lab Data 11/06/23 15:47 11/06/23 15:47 Labs/Radiology: Radiology Impressions Abdomen/Pelvis CT 11/06/23 16:09 IMPRESSION: Enlarging mesenteric masses, mesenteric adenopathy and periaortic adenopathy indicating interval progression of disease since 09/03/2023. Laboratory Results WBC 8.35 10^3/uL (3.29-11.43) 11/06/23 15:47 RBC 5.50 10^6/uL (3.85-5.65) 11/06/23 15:47 Hgb 16.50 g/dL (11.27-16.99) 11/06/23 15:47 Hct 50.8 % (36-47) H 11/06/23 15:47 MCV 92.4 fl (85-98) 11/06/23 15:47 MCH 30.0 pg (27-33) 11/06/23 15:47 MCHC 32.5 g/dL (30-55) 11/06/23 15:47 RDW 13.5 % (12.1-15.1) 11/06/23 15:47 Plt Count 234 10^3/cmm (157-399) 11/06/23 15:47 MPV 10.9 fL (7.4-10.4) H 11/06/23 15:47 Neut % (Auto) 60.5 % 11/06/23 15:47 Lymph % (Auto) 26.3 % 11/06/23 15:47 [place] % (Auto) 9.3 % 11/06/23 15:47 Eos % (Auto) 3.1 % 11/06/23 15:47 Baso % (Auto) 0.6 % 11/06/23 15:47 Neut # (Auto) 5.04 10^3/uL (1.8-7.7) 11/06/23 15:47 Lymph # (Auto) 2.2 10^3/uL (0.8-4.8) 11/06/23 15:47 [place] # (Auto) 0.8 10^3/uL (0.2-0.9) 11/06/23 15:47 Eos # (Auto) 0.3 10^3/uL (0.0-0.8) 11/06/23 15:47 Baso # (Auto) 0.1 10^3/uL (0.0-0.1) 11/06/23 15:47 Nucleated RBC % (auto) 0.4 % 11/06/23 15:47 Nucleated RBCs # 0.0 /100WBC 11/06/23 15:47 Sodium 135 mmol/L (136-145) L 11/06/23 15:47 Potassium 4.1 mmol/L (3.5-5.1) 11/06/23 15:47 Chloride 93 mmol/L (98-107) L 11/06/23 15:47 Carbon Dioxide 31 mmol/L (22-29) H 11/06/23 15:47 Anion Gap 15.1 (5-19) 11/06/23 15:47 BUN 12 mg/dL (8-23) 11/06/23 15:47 Creatinine 0.9 mg/dL (0.5-0.9) 11/06/23 15:47 GFR Calculation 62.1 mL/min (90-130) L 11/06/23 15:47 Glucose 112 mg/dL (65-115) 11/06/23 15:47 Calculated Osmolality 281 mOsm/kg (285-295) L 11/06/23 15:47 Lactic Acid 1.1 mmol/L (0.5-2.2) 11/06/23 16:17 Calcium 9.3 mg/dL (8.5-10.5) 11/06/23 15:47 Magnesium 2.2 mg/dL (1.7-2.3) 11/06/23 15:47 Total Bilirubin 1.1 mg/dL (0.15-1.2) 11/06/23 15:47 AST 25 U/L (0-32) 11/06/23 15:47 ALT 20 U/L (0-33) 11/06/23 15:47 Alkaline Phosphatase 111 U/L (35-105) H 11/06/23 15:47 Total Protein 6.5 g/dL (6.6-8.7) L 11/06/23 15:47 Albumin 4.0 g/dL (3.5-5.2) 11/06/23 15:47 Globulin 2.5 g/dL (1.3-4.6) 11/06/23 15:47 Lipase 15 U/L (13-60) 11/06/23 15:47 Urine Color Yellow (Yellow) 11/06/23 18:27 Urine Appearance Hazy (CLEAR) A 11/06/23 18:27 Urine pH 7 (5-7) 11/06/23 18:27 Ur Specific [place] 1.000 (1.005-1.030) L 11/06/23 18:27 Urine Protein Neg (Negative) 11/06/23 18:27 Urine Glucose (UA) Norm (Normal) 11/06/23 18:27 Urine Ketones 1+ (Negative) H 11/06/23 18:27 Urine Blood Neg (Negative) 11/06/23 18:27 Urine Nitrate Negative (Negative) 11/06/23 18:27 Urine Bilirubin Neg (Negative) 11/06/23 18:27 Urine Urobilinogen Norm mg/dL (Negative) 11/06/23 18:27 Ur Leukocyte Esterase 2+ (Negative) H 11/06/23 18:27 Urine RBC 0-4 /hpf (0-2) H 11/06/23 18:27 Urine WBC 15-25 /hpf (0-5) H 11/06/23 18:27 Ur Squamous Epith Cells 0-4 /hpf (0-5) H 11/06/23 18:27 Amorphous Sediment Trace /hpf 11/06/23 18:27 Urine Bacteria Trace /hpf (NONE) 11/06/23 18:27 Discharge Plan Discharge Patient Disposition: Home Clinical Impression: Acute lower urinary tract infection Abdominal pain Qualifiers: Abdominal location: generalized Qualified Code(s): R10.84 - Generalized abdominal pain Condition: Stable Prescriptions: New docusate sodium [Colace] 100 mg capsule 100 mg PO TID PRN (Reason: constipation ) Qty: 30 0RF Bactrim DS 800-160 mg tablet 1 tab PO BID Qty: 20 0RF No Action Xarelto 20 mg tablet 20 mg PO DAILY 90 Days Qty: 90 1RF loperamide [Imodium A-D] 2 mg capsule 2 mg PO Q6H PRN (Reason: Diarrhea) [place] 15-6.14 mg tablet 1 tab PO BID 10 Days Qty: 20 0RF Rx Instructions: must take within 1 hr after completion of meal Take days 1-5 and 8-12 of a 28 day cycle [place] 20-8.19 mg tablet 3 tab PO BID 10 Days Qty: 60 0RF Rx Instructions: must take within 1 hr after completion of meal; administer days 1-5 and 8 through 12 of 28-day cycle azithromycin 250 mg tablet See Rx Instructions PO .COMPLEX Qty: 6 0RF Rx Instructions: take 500 mg today (day 1), then 250 mg for 4 days (days 2-5) PO prochlorperazine maleate 10 mg tablet 10 mg PO Q6H PRN (Reason: nausea and vomiting) Qty: 30 0RF ondansetron HCl 8 mg tablet 8 mg PO Q8H PRN (Reason: nausea and vomiting) Qty: 10 0RF simethicone 125 mg Capsule 125 mg PO DAILY PRN (Reason: gas) Systane Gel 0.4-0.3 % Drops,Gel 1 drp OPHTHALMIC (EYE) Q2H PRN (Reason: Dry Eye(S)) trazodone 150 mg tablet 150 mg PO BEDTIME PRN (Reason: Insomnia) fluoxetine 40 mg capsule 40 mg PO DAILY levothyroxine 25 mcg tablet 25 mcg PO DAILY bupropion HCl 300 mg tablet extended release 24 hr 300 mg PO DAILY Discharge Orders: Discharge ED (Routine); Ordered 11/06/23 Ordered By: Giancarlo Cardenas Referrals: AXEL Mir, DRUG ABUSE WORKER [Primary Care Provider] - 1 week Patient Instructions: Urinary Tract Infection in Women (ED), Abdominal Pain (ED) Activity Restrictions/Additional Instructions: Your lab work performed in ER showed you have a urinary tract infection. You are given Bactrim in ER. You will be discharged home with a prescription for Bactrim to finish your full course. Please follow-up with your family practice physician within the next 7 days for further evaluation and treatment. Coding Level of Care Code ED B[employer] Cell[employer] Machine Helper for Brandt Segal
[2023-11-06 15:59] LABS: Basophils # 0.1 10^3/uL (0.0-0.1); Basophils % 0.6 %; Eosinophils # 0.3 10^3/uL (0.0-0.8); Eosinophils % 3.1 %; Hematocrit 50.8 % (36-47); Lymphocytes # 2.2 10^3/uL (0.8-4.8); Lymphocytes % 26.3 %; Mean Corpuscular HGB Conc 32.5 g/dL (30-55); Mean Corpuscular Volume 92.4 fl (85-98); Mean Platelet Volume 10.9 fL (7.4-10.4); Monocytes # 0.8 10^3/uL (0.2-0.9); Monocytes % 9.3 %; Neutrophils # 5.04 10^3/uL (1.8-7.7); Neutrophils % 60.5 %; Nucleated Red Blood Cells % 0.4 %; Platelet Count 234 10^3/cmm (157-399); Red Cell Distribution Width 13.5 % (12.1-15.1); White Blood Count 8.35 10^3/uL (3.29-11.43)
--- NOTE | 2023-11-06 16:09 | ECG_ITS ---
[facility] Test Date: 2023-11-06 Pat Name: Mona Arnett Department: Room: Gender: Female Roll Hand: : 1955 Requested By: Markie Avila Order Number: [id number] Rosemarie MD: Parveen Rubin M.D. Measurements Intervals [place] Rate: 81 P: 58 IN: 170 QRS: 43 QRSD: 91 T: 78 QT: 403 QTc: 470 Interpretive Statements SINUS RHYTHM No previous ECG available for comparison Electronically Signed On 11-07-2023 23:13:46 BUZZSAW OPERATOR HELPER by Parveen Rubin M.D. [id number]
--- NOTE | 2023-11-06 16:09 | CTR_ITS ---
PROCEDURE INFORMATION: Exam: CT Abdomen And Pelvis With Contrast Exam date and time: 11/06/2023 4:36 PM Age: 68 years old Clinical indication: Abdominal pain; Generalized; Prior surgery; Surgery date: 6+ months; Surgery type: Colon appy; Patient HX: Colon CA; Additional info: Abd pain TECHNIQUE: Imaging protocol: Computed tomography of the abdomen and pelvis with contrast. Radiation optimization: All CT scans at this facility use at least one of these dose optimization techniques: automated exposure control; mA and/or kV adjustment per patient size (includes targeted exams where dose is matched to clinical indication); or iterative reconstruction. Contrast material: OMNI 350; Contrast volume: 100 ml; Contrast route: INTRAVENOUS (IV); COMPARISON: CT chest abdpel w/*[id number] 09/03/2023 9:45 AM RADIATION DOSE METRICS: Total DLP (mGy-cm): 907.86 FINDINGS: Lungs: Lung bases are clear. No pleural effusion. Liver: Normal. No mass. Gallbladder and bile ducts: Normal. No calcified stones. No ductal dilation. Pancreas: Normal. No ductal dilation. Spleen: Normal. No splenomegaly. Adrenal glands: Normal. No mass. Kidneys and ureters: Normal. No hydronephrosis. Stomach and bowel: Unremarkable. No obstruction. No mucosal thickening. Appendix: No evidence of appendicitis. Intraperitoneal space: Minimal ascites is noted in the pelvis. Vasculature: Unremarkable. No abdominal aortic aneurysm. Lymph nodes: 2.8 cm lymph node in the left periaortic space. Urinary bladder: Unremarkable as visualized. Reproductive: Unremarkable as visualized. Bones/joints: Unremarkable. No acute fracture. Soft tissues: There is a 3.1 cm diameter spiculated rounded soft tissue nodule in the right lower quadrant. The nodule abuts the small bowel here and there are surrounding enlarged lymph nodes. A 2nd 2.6 cm mesenteric mass is noted more medially and inferiorly. Multiple lymph nodes surround this mass and measure up to 1.5 cm. A periumbilical hernia contains small bowel. CT/CT abdomen pelvis w con* [id number] IMPRESSION: Enlarging mesenteric masses, mesenteric adenopathy and periaortic adenopathy indicating interval progression of disease since 09/03/2023.
[2023-11-06] MEDS: sodium chloride 0.9% 1,000 ML 999 ML IV (16:15)
--- NOTE | 2023-11-06 16:15 | PC.PHAR ---
PT STATES LONSURF (BOTH STRENGTHS) IS ONLY MED TAKEN TODAY. 11/06/23
[2023-11-06] MEDS: ondansetron 2 mg/ML SDV 2 mL 4 MG IVP (16:16)
[2023-11-06 16:17] LABS: Alanine Aminotransferase 20 U/L (0-33); Alkaline Phosphatase 111 U/L (35-105); Aspartate Amino Transferase 25 U/L (0-32); Blood Urea Nitrogen 12 mg/dL (8-23); Calcium 9.3 mg/dL (8.5-10.5); Carbon Dioxide 31 mmol/L (22-29); Chloride 93 mmol/L (98-107); Globulin 2.5 g/dL (1.3-4.6); Glomerular Filtration Rate 62.1 mL/min (90-130); Glucose 112 mg/dL (65-115); Lipase 15 U/L (13-60); Magnesium 2.2 mg/dL (1.7-2.3); Osmolality Calculated 281 mOsm/kg (285-295); Sodium 135 mmol/L (136-145); Total Bilirubin 1.1 mg/dL (0.15-1.2); Total Protein 6.5 g/dL (6.6-8.7)
[2023-11-06 16:22] LABS: Anion Gap 15.1 (5-19); Potassium 4.1 mmol/L (3.5-5.1)
[2023-11-06] MEDS: iohexol 350 mg/mL 500 mL Btl (per mL) IV (16:38)
[2023-11-06 16:44] LABS: Lactic Sepsis W/Reflex 1.1 mmol/L (0.5-2.2)
[2023-11-06 19:45] LABS: Add Urine Microscopic? YES; Bilirubin Urine Neg (Negative); Blood Urine Neg (Negative); Glucose Urine UA Norm (Normal); Ketones Urine 1+ (Negative); Leukocyte Esterase Urine 2+ (Negative); Nitrate Urine Negative (Negative); Protein Urine Neg (Negative); Urine Appearance Hazy (CLEAR); Urine Color Yellow (Yellow); Urobilinogen Urine Norm (Negative); pH Urine 7 (5-7)
[2023-11-06 19:46] LABS: Amorphous Sediment Urine TRACE /hpf; Bacteria Urine TRACE /hpf; RBC Urine 0-4 /hpf (0-2); Squamous Epithelial Cell Urine 0-4 /hpf (0-5); WBC Urine 15-25 /hpf (0-5)
[2023-11-06 19:47] LABS: Add Urine Culture? No
[2023-11-06] MEDS: sulfamethoxazole-trimeth DS 160-800 mg Tablet 1 TAB PO (20:12)
== END 2023-11-06 20:23 | disposition home or self-care (01) ==
PROVIDERS: Emergency Provider Family Medicine; PCP Nurse Practitioner Family
DX: N39.0 Urinary tract infection, site not specified (principal); R10.84 Generalized abdominal pain; Z87.891 Personal history of nicotine dependence; Z85.038 Personal history of other malignant neoplasm of large intestine; Z86.73 Personal history of transient ischemic attack (TIA), and cerebral infarction without residual deficits; Z85.89 Personal history of malignant neoplasm of other organs and systems; E78.5 Hyperlipidemia, unspecified
CPT/HCPCS: 36415; 74177; 80053; 81001; 83605; 83690; 83735; 85025; 93005; 96361; 96374; 99285; J2405; J7030; Q9967

== ENCOUNTER 2023-12-03 11:45 | Oncology outpatient (recurring) (ONCR) | payer MEDICARE, OTHER, SELFPAY ==
[2023-11-12 10:16] LABS: Mean Corpuscular HGB Conc 32.1 g/dL (30-55); Mean Corpuscular Hemoglobin 29.7 pg (27-33); Mean Corpuscular Volume 92.5 fl (85-98); Mean Platelet Volume 10.5 fL (7.4-10.4); Platelet Count 205 10^3/cmm (157-399); Red Blood Count 5.08 10^6/uL (3.85-5.65); Red Cell Distribution Width 14.2 % (12.1-15.1); White Blood Count 5.98 10^3/uL (3.29-11.43)
[2023-11-12 10:53] LABS: Total Cells Counted 100 (0-100)
[2023-11-12 10:55] LABS: Carcinoembryonic Antigen 3.3 ng/mL (0.0-4.7)
[2023-11-12 11:00] LABS: Absolute Eosinophils 0.1 10^3/cmm (0.0-0.7); Eosinophils 2 %; Lymphocytes 23 %; Lymphocytes Absolute 1.6 10^3/cmm (1.2-3.4); Monocytes Absolute 0.3 10^3/cmm (0.1-0.6); Platelet Estimate Normal (Normal); Segmented Neutrophils 67 %
[2023-11-12 11:01] LABS: Anisocytosis Trace
[2023-11-12 11:06] LABS: Alanine Aminotransferase 23 U/L (0-33); Albumin Level 3.7 g/dL (3.5-5.2); Alkaline Phosphatase 94 U/L (35-105); Aspartate Amino Transferase 23 U/L (0-32); Blood Urea Nitrogen 8 mg/dL (8-23); Calcium 8.9 mg/dL (8.5-10.5); Carbon Dioxide 26 mmol/L (22-29); Chloride 103 mmol/L (98-107); Glucose 135 mg/dL (65-115); Osmolality Calculated 294 mOsm/kg (285-295); Sodium 142 mmol/L (136-145); Total Bilirubin 0.4 mg/dL (0.15-1.2); Total Protein 5.7 g/dL (6.6-8.7)
[2023-11-12 11:09] LABS: Anion Gap 16.8 (5-19); Potassium 3.8 mmol/L (3.5-5.1)
== END 2023-12-03 23:59 | disposition home or self-care (01) ==
PROVIDERS: Internal Medicine; PCP Nurse Practitioner Family; Visit Provider Internal Medicine Medical Oncology
DX: Z53.9 Procedure and treatment not carried out, unspecified reason (principal); C18.0 Malignant neoplasm of cecum; Z92.21 Personal history of antineoplastic chemotherapy; Z95.828 Presence of other vascular implants and grafts; Z79.899 Other long term (current) drug therapy; Z87.891 Personal history of nicotine dependence
CPT/HCPCS: 36591; 80053; 82378; 85007; 85027; 96523; 99214; J1642

== ENCOUNTER 2023-12-31 11:22 | Oncology outpatient (recurring) (ONCR) | payer MEDICARE, OTHER, SELFPAY | END 2024-01-03 23:59 | disposition home or self-care (01) | PROVIDERS: PCP Nurse Practitioner Family; Visit Provider Internal Medicine Medical Oncology | DX: C78.6 Secondary malignant neoplasm of retroperitoneum and peritoneum (principal); Z85.038 Personal history of other malignant neoplasm of large intestine; Z79.899 Other long term (current) drug therapy; Z90.49 Acquired absence of other specified parts of digestive tract; Z95.828 Presence of other vascular implants and grafts | CPT/HCPCS: 96523; 99214 ==

== ENCOUNTER 2024-01-27 09:58 | Emergency (ER) | payer MEDICARE, OTHER, SELFPAY ==
[2024-01-27 10:04] VITALS: BP 170/107; PULSE 97; RESP 17; TEMP 36.7; O2SAT 97; BMI 28.7
--- NOTE | 2024-01-27 10:28 | ECG_ITS ---
[facility] Test Date: 2024-01-27 Pat Name: Mona Arnett Department: Room: Gender: Female Community Health Director: : 1955 Requested By: Denver Crenshaw Order Number: [id number] Rosemarie MD: Horace Barrera M.D. Measurements Intervals [place] Rate: 96 P: 54 ME: 159 QRS: 31 QRSD: 94 T: 71 QT: 294 QTc: 373 Interpretive Statements SINUS RHYTHM WITH OCCASIONAL VENTRICULAR PREMATURE COMPLEXES LOW QRS VOLTAGE IN PRECORDIAL LEADS [QRS DEFLECTION < 1.0 mV IN CHEST LEADS] NONSPECIFIC T-WAVE ABNORMALITY Compared to ECG 11/06/2023 16:09:17 Ventricular premature complex(es) now present Low QRS voltage now present T-wave abnormality now present Electronically Signed On 01-27-2024 18:30:45 CDT by Horace Barrera M.D. [id number] f
--- NOTE | 2024-01-27 11:05 | XRR_ITS ---
PROCEDURE INFORMATION: Exam: XR Abdomen Exam date and time: 01/27/2024 11:23 AM Age: 68 years old Clinical indication: Abdominal pain; Generalized; Additional info: Abd pain TECHNIQUE: Imaging protocol: Radiologic exam of the abdomen. Views: Frontal supine view of the abdomen. 1 View. COMPARISON: CT abdomen pelvis w con* [id number] 11/06/2023 4:36 PM FINDINGS: Gastrointestinal tract: Dilated air-filled small bowel loops are present in the central abdomen. Colonic stool is present in nondistended colon. No organomegaly or significant pathologic calcification. Intraperitoneal space: Suture line present in the right mid abdomen. Bones/joints: Levocurvature and degenerative change of the lumbar spine. Soft tissues: Vascular calcifications noted in the soft tissues. XR/XR abdomen 1V* [id number] IMPRESSION: Abnormal bowel-gas pattern with dilated air-filled loops in the central abdomen raising the possibility of small bowel obstruction although other pathology such as small bowel ileus or infectious/inflammatory pathology is included in the differential diagnosis . CT recommended further assessment if clinically warranted.
[2024-01-27 12:17] LABS: Basophils % 0.4 %; Eosinophils # 0.1 10^3/uL (0.0-0.8); Eosinophils % 0.6 %; Lymphocytes % 12.7 %; Mean Corpuscular HGB Conc 32.2 g/dL (30-55); Mean Corpuscular Hemoglobin 30.1 pg (27-33); Mean Corpuscular Volume 93.3 fl (85-98); Mean Platelet Volume 10.7 fL (7.4-10.4); Monocytes # 0.9 10^3/uL (0.2-0.9); Monocytes % 10.5 %; Neutrophils # 6.17 10^3/uL (1.8-7.7); Neutrophils % 75.6 %; Nucleated Red Blood Cells % 0 %; Platelet Count 250 10^3/cmm (157-399); Red Blood Count 5.25 10^6/uL (3.85-5.65); Red Cell Distribution Width 13.9 % (12.1-15.1); White Blood Count 8.17 10^3/uL (3.29-11.43)
--- NOTE | 2024-01-27 12:25 | W.ED.ABDPA2 ---
HPI - Abdominal Pain General: Chief Complaint: Abdominal Pain Stated Complaint: Sent Salvador Mir Abd pain Time Seen by Provider: 01/27/24 12:23 History of Present Illness: 68-year-old female presents emergency department with complaints of generalized abdominal pain that started this morning. She states she was seen yesterday at her [facility] clinic and did receive a CT scan but has not discussed the results with anyone. She states her abdominal pain is now a 8 out of 10. She states she does have a longstanding history of colon cancer. She states she does feel nauseated and her last bowel movement was yesterday and was very difficult. 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 Hypothyroid Patient has remained well controlled with Levothyroxine. Anxiety Patient has history of anxiety that is currently well controlled with medication Hyperlipemia Patient continues to take Statin Medication without adverse reaction. Surgical History Status post bilateral knee replacements S/P appendectomy Status post colonoscopy (06/19/20) cecal mass Social History Smoking and tobacco/nicotine status: former use of tobacco/nicotine Quit status (tobacco/nicotine): has quit using Year quit tobacco: 2016 Former quit date comment: Smoked for 40 years Second hand smoke exposure: No Alcohol intake: never Substance/Drug Use: never Physical Exam Narrative: EXAM NARRATIVE: Constitutional: the patient appears well nourished and of normal development. Vital signs as documented. No acute distress at present. Alert and oriented-to person, place, time and situation. Head, eyes, ears, nose, mouth, throat: Normocephalic, atraumatic. Pupils-equal, round, reactive to light. No scleral icterus. Normal-appearing external ears. Normal appearing nasal turbinates, no drainage. No obvious oral lesions, posterior oropharynx without erythema or exudates. Neck: Supple, trachea is midline, no lymphadenopathy, no jugular venous distension, thyromegaly, or carotid bruits. Carotid upstrokes are brisk bilaterally. Lungs: clear to auscultation to all lung godinez. Symmetrical rise and fall of chest, no obvious signs of increased work of breathing at present. Cardiac: Regular rate and rhythm, positive S1, S2. No murmurs, rubs or gallops that I can appreciate Abdomen: Soft, tender to palpation to the right lower and left lower quadrant., normal active bowel sounds to all quadrants. No palpable masses, no organomegaly and abdominal bruits. Extremities: 2+ pulses in the upper extremities that are equal bilaterally, 2+ pulses in the lower extremities that are equal bilaterally. Non-edematous. Moves all extremities well, sensation to all extremities are noted. Skin: Warm, dry, intact. Course Vital Signs: Vital signs: Vital Signs Temperature 98.1 F 01/27/24 10:04 Pulse Rate 98 01/27/24 19:07 Respiratory Rate 17 01/27/24 18:00 Blood Pressure 155/131 01/27/24 19:07 Pulse Oximetry 97 01/27/24 19:07 Oxygen Delivery Me thod Room Air 01/27/24 10:04 MDM - Abdominal Pain Medical Decision Making Physical exam completed and documented, I will obtain laboratory evaluation to include a CBC, CMP, lipase, urinalysis, and a CT scan of the patient's abdomen pelvis to evaluate for possible differential diagnosis of bowel obstruction, incarcerated hernia, abdominal wall strain, abdominal wall hematoma, constipation, possible colitis, acute appendicitis, diverticulitis, worsening malignancy. I did contact the general surgeon on-call Dr. Ray and he requested transfer of the patient given her complex past medical/surgical history. accepted at [facility]. Medical Records I reviewed the patient's medical records. Lab Data I reviewed the patient's lab results. 01/27/24 12:10 01/27/24 12:10 Labs/Radiology: Radiology Impressions Abdomen X-Ray 01/27/24 15:46 IMPRESSION: NG tube in fundus of the stomach. Laboratory Results WBC 8.17 10^3/uL (3.29-11.43) 01/27/24 12:10 RBC 5.25 10^6/uL (3.85-5.65) 01/27/24 12:10 Hgb 15.80 g/dL (11.27-16.99) 01/27/24 12:10 Hct 49.0 % (36-47) H 01/27/24 12:10 MCV 93.3 fl (85-98) 01/27/24 12:10 MCH 30.1 pg (27-33) 01/27/24 12:10 MCHC 32.2 g/dL (30-55) 01/27/24 12:10 RDW 13.9 % (12.1-15.1) 01/27/24 12:10 Plt Count 250 10^3/cmm (157-399) 01/27/24 12:10 MPV 10.7 fL (7.4-10.4) H 01/27/24 12:10 Neut % (Auto) 75.6 % 01/27/24 12:10 Lymph % (Auto) 12.7 % 01/27/24 12:10 Lasalle % (Auto) 10.5 % 01/27/24 12:10 Eos % (Auto) 0.6 % 01/27/24 12:10 Baso % (Auto) 0.4 % 01/27/24 12:10 Neut # (Auto) 6.17 10^3/uL (1.8-7.7) 01/27/24 12:10 Lymph # (Auto) 1.0 10^3/uL (0.8-4.8) 01/27/24 12:10 Lasalle # (Auto) 0.9 10^3/uL (0.2-0.9) 01/27/24 12:10 Eos # (Auto) 0.1 10^3/uL (0.0-0.8) 01/27/24 12:10 Baso # (Auto) 0.0 10^3/uL (0.0-0.1) 01/27/24 12:10 Nucleated RBC % (auto) 0 % 01/27/24 12:10 Nucleated RBCs # 0.0 /100WBC 01/27/24 12:10 Sodium 142 mmol/L (136-145) 01/27/24 12:10 Potassium 4.2 mmol/L (3.5-5.1) 01/27/24 12:10 Chloride 101 mmol/L (98-107) 01/27/24 12:10 Carbon Dioxide 30 mmol/L (22-29) H 01/27/24 12:10 Anion Gap 15.2 (5-19) 01/27/24 12:10 BUN 16 mg/dL (8-23) 01/27/24 12:10 Creatinine 1.1 mg/dL (0.5-0.9) H 01/27/24 12:10 GFR Calculation 49.2 mL/min (90-130) L 01/27/24 12:10 Glucose 134 mg/dL (65-115) H 01/27/24 12:10 Calculated Osmolality 297 mOsm/kg (285-295) H 01/27/24 12:10 Lactic Acid 1.1 mmol/L (0.5-2.2) 01/27/24 12:43 Calcium 10.1 mg/dL (8.5-10.5) 01/27/24 12:10 Total Bilirubin 0.4 mg/dL (0.15-1.2) 01/27/24 12:10 AST 28 U/L (0-32) 01/27/24 12:10 ALT 27 U/L (0-33) 01/27/24 12:10 Alkaline Phosphatase 135 U/L (35-105) H 01/27/24 12:10 Total Protein 6.6 g/dL (6.6-8.7) 01/27/24 12:10 Albumin 3.9 g/dL (3.5-5.2) 01/27/24 12:10 Globulin 2.7 g/dL (1.3-4.6) 01/27/24 12:10 Lipase 17 U/L (13-60) 01/27/24 12:10 Procalcitonin 0.11 ng/mL (0-0.5) 01/27/24 12:43 Urine Color Yellow (Yellow) 01/27/24 12:48 Urine Appearance Hazy (CLEAR) A 01/27/24 12:48 Urine pH 5 (5-7) 01/27/24 12:48 Ur Specific Phelps 1.025 (1.005-1.030) 01/27/24 12:48 Urine Protein 3+ (Negative) H 01/27/24 12:48 Urine Glucose (UA) Norm (Normal) 01/27/24 12:48 Urine Ketones 1+ (Negative) H 01/27/24 12:48 Urine Blood 2+ (Negative) H 01/27/24 12:48 Urine Nitrate Negative (Negative) 01/27/24 12:48 Urine Bilirubin Neg (Negative) 01/27/24 12:48 Urine Urobilinogen 1 mg/dL (Negative) H 01/27/24 12:48 Ur Leukocyte Esterase 2+ (Negative) H 01/27/24 12:48 Urine RBC 0-4 /hpf (0-2) H 01/27/24 12:48 Urine WBC 10-15 /hpf (0-5) H 01/27/24 12:48 Ur Squamous Epith Cells 0-4 /hpf (0-5) H 01/27/24 12:48 Amorphous Sediment Not Reportable 01/27/24 12:48 Urine Bacteria None /hpf (NONE) 01/27/24 12:48 Urine Mucus 1+ /hpf 01/27/24 12:48 Ur Oval Fat Bodies 1+ /hpf 01/27/24 12:48 All radiology interpretation(s) finalized by discharge Discharge Plan Discharge Patient Disposition: Xfer Short-Term Hosp Clinical Impression: Complete small bowel obstruction, Abdominal pain Condition: Stable Referrals: SALVADOR Mir, TRANSPORT TECHNICIAN [Primary Care Provider] - Patient Instructions: Abdominal Pain (ED) Coding Level of Care Code ED Director [employer] [facility]
[2024-01-27 12:34] LABS: Alanine Aminotransferase 27 U/L (0-33); Albumin Level 3.9 g/dL (3.5-5.2); Alkaline Phosphatase 135 U/L (35-105); Anion Gap 15.2 (5-19); Aspartate Amino Transferase 28 U/L (0-32); Blood Urea Nitrogen 16 mg/dL (8-23); Calcium 10.1 mg/dL (8.5-10.5); Carbon Dioxide 30 mmol/L (22-29); Chloride 101 mmol/L (98-107); Creatinine Clr Calc Pharmacy 58.9687; Globulin 2.7 g/dL (1.3-4.6); Glomerular Filtration Rate 49.2 mL/min (90-130); Glucose 134 mg/dL (65-115); Lipase 17 U/L (13-60); Osmolality Calculated 297 mOsm/kg (285-295); Potassium 4.2 mmol/L (3.5-5.1); Sodium 142 mmol/L (136-145); Total Bilirubin 0.4 mg/dL (0.15-1.2); Total Protein 6.6 g/dL (6.6-8.7)
--- NOTE | 2024-01-27 12:59 | CT_ITS ---
WS: [id number] CT ABDOMEN AND PELVIS WITH CONTRAST HISTORY: abd pain TECHNIQUE: Imaging performed of the abdomen and pelvis with IV contrast. Single phase imaging of the abdomen. Coronal and sagittal reformats are submitted. All CT scans at [facility] use at [address] one of these dose optimization techniques: automated exposure control; mA and/or kV adjustment per patient size (includes targeted exams where dose is matched to clinical indication); or iterative re construction. IV CONTRAST: Omnipaque 350; 100 mL IV. Oral contrast: No DLP: 908.67 mGy.cm COMPARISON: 11/06/2023, 09/03/2023 Lower thorax: Very small subcentimeter pulmonary nodules at the lung bases. The largest measures appr oximately 6 mm in the RIGHT lower lung field. Heart is normal size. No hiatal hernia. Liver/biliary system: Normal size liver. There is a new very subtle low-attenuation nodule measuring 12 mm in the RIGHT lobe of the liver. Additional very subtle low-attenuation 10 mm nodule in the more inferior RIGHT lobe of the liver. These were not present on the prior study and may represent new me tastatic sites. No bile duct dilatation. Gallbladder: Normal. No gallstones or wall thickening. No pericholecystic fluid. Pancreas: Normal size pancreas and pancreatic duct. No adjacent inflammation. Spleen: Normal size spleen. No mass or infarct. Adrenal glands: Normal. Right kidney: Delayed excretion and enhancement of the RIGHT kidney. New moderate hydroureteronephros is. The proximal ureter is dilated. Ureter is dilated to the L4-5 level. No ureteral calcification. Left kidney: Normal. Aorta: Moderate atherosclerosis with no aneurysm. Lymphadenopathy: Progressive increase in size of the neoplastic deposit in the RIGHT lower quadrant w hich abuts the cecum and the distal small bowel. There are adjacent surgical sutures. There is a lobu lated soft tissue mass along the medial cecum which is increasing in size. This mass measures 4.6 x 5 .5 cm and is probably resulting in obstruction of the small bowel as there is increasing fluid. There is an additional more medial similar lobulated neoplastic deposit and adjacent lymph nodes in the RI T pelvis measuring 4.2 x 5.8 cm. LEFT periaortic retroperitoneal lymphadenopathy 2.8 x 2.4 cm which is also increased in size. There are additional small central mesenteric nodes. Stranding within the adjacent mesentery may be tumor infiltration. Free fluid: There is a small amount of ascites but increasing since the prior study. Fluid is now not ed adjacent to the liver and spleen and also in the pelvis. GI tract: Stomach is mildly distended. Proximal small bowel is not distended. The mid to distal small bowel is fluid distended to the RIGHT lower quadrant. Probably obstructed by the tumor in the RIGHT lower quadrant associated with the GI tract. Abdominal wall: Ventral abdominal wall hernia. Pelvis: Small but increasing free fluid. Bones: No metastatic bone disease is identified. IMPRESSION: 1. Interval progression of metastatic disease since 11/06/2023. 2. Previously described mesenteric neoplastic deposits in the RIGHT lower quadrant and lymphadenopat hy has progressed along with mesenteric soft tissue infiltration which might be tumor extension. 3. There is now a moderate distal small bowel obstruction. Obstruction may be related to the distal small bowel in the proximal colon at the site of the prior surgery. This is also the site of the neop lastic deposits. 4. Small but increasing ascites. 5. New very subtle areas of decreased attenuation in the liver highly suspicious for metastatic dise ase. 6. No change in the bilateral subcentimeter pulmonary nodules. Also suspicious for metastatic diseas e.
[2024-01-27 13:00] LABS: Add Urine Microscopic? YES; Bilirubin Urine Neg (Negative); Blood Urine 2+ (Negative); Glucose Urine UA Norm (Normal); Ketones Urine 1+ (Negative); Leukocyte Esterase Urine 2+ (Negative); Nitrate Urine Negative (Negative); Protein Urine 3+ (Negative); Specific Gravity, Urine 1.025 (1.005-1.030); Urine Appearance Hazy (CLEAR); Urine Color Yellow (Yellow); Urobilinogen Urine 1 mg/dL (Negative); pH Urine 5 (5-7)
[2024-01-27 13:09] LABS: Add Urine Culture? Yes; Mucus Urine 1+ /hpf; Oval Fat Bodies Urine 1+ /hpf; RBC Urine 0-4 /hpf (0-2); Squamous Epithelial Cell Urine 0-4 /hpf (0-5)
[2024-01-27 13:10] LABS: Lactic Sepsis W/Reflex 1.1 mmol/L (0.5-2.2)
[2024-01-27 13:50] LABS: Procalcitonin 0.11 ng/mL (0-0.5)
[2024-01-27] MEDS: iohexol 350 mg/mL 500 mL Btl (per mL) IV (14:39)
--- NOTE | 2024-01-27 15:46 | XRR_ITS ---
PROCEDURE INFORMATION: Exam: XR Abdomen Exam date and time: 01/27/2024 5:23 PM Age: 68 years old Clinical indication: Device placement; Gi device; Nasogastric tube; Additional info: Post-ng tube placement TECHNIQUE: Imaging protocol: Radiologic exam of the abdomen. Views: Frontal supine view of the abdomen. 1 View. COMPARISON: CT abdomen pelvis w con* [id number] 01/27/2024 2:38 PM FINDINGS: Tubes, catheters and devices: Nasogastric tube extends into the fundus of the stomach. Partial obscuration of the majority of the abdomen limiting assessment of the bowel-gas pattern. Central line projecting over the SVC. Gastrointestinal tract: See Tubes, catheters and devices finding. Bones/joints: Unremarkable. XR/XR abdomen 1V* [id number] IMPRESSION: NG tube in fundus of the stomach.
[2024-01-27] MEDS: ondansetron 2 mg/ML SDV 2 mL 4 MG IVP (16:14)
[2024-01-27 16:15] VITALS: RESP 15
[2024-01-27] MEDS: morphine 4 mg/mL SDV 1 mL IVP (16:15)
[2024-01-27 16:33] VITALS: BP 190/138; PULSE 102; RESP 17; O2SAT 91
[2024-01-27] MEDS: hyDRALAzine 20 mg/mL INJ 1 mL 10 MG IVP (17:09)
[2024-01-27 18:00] VITALS: BP 154/103; PULSE 96; RESP 17; O2SAT 96
[2024-01-27 18:56] VITALS: BP 175/97; PULSE 98; O2SAT 96
[2024-01-27 19:07] VITALS: BP 155/131; PULSE 98; O2SAT 97
== END 2024-01-27 19:10 | disposition short-term general hospital (02) ==
PROVIDERS: Emergency Provider Internal Medicine; PCP Nurse Practitioner Family
DX: K56.601 Complete intestinal obstruction, unspecified as to cause (principal); Z87.891 Personal history of nicotine dependence; Z85.038 Personal history of other malignant neoplasm of large intestine; E78.5 Hyperlipidemia, unspecified; Z92.21 Personal history of antineoplastic chemotherapy
CPT/HCPCS: 36415; 74018; 74177; 80053; 81001; 83605; 83690; 84145; 85025; 87086; 93005; 96374; 96375; 99285; J0360; J2270; J2405; Q9967